=== PATIENT | female | born 1960 | race Two or more races ===

== ENCOUNTER 2024-09-28 10:07 | Emergency (ER) | payer MEDICARE, MEDICAID, SELFPAY ==
[2024-09-28 10:44] VITALS: BP 158/109; PULSE 136; RESP 18; TEMP 38; O2SAT 96; BMI 31.1
--- NOTE | 2024-09-28 10:45 | XR_ITS ---
Examination: PA lateral chest 2 views TECHNIQUE: Upright PA lateral chest 2 views Exam date and time: September 28, 2024 1119 hours Comparison April 14, 2024 INDICATIONS: Coughing today. FINDINGS: Parenchymal disease in the right middle lobe obscuring detail right cardiac contour No significant cardiac enlargement No pulmonary edema IMPRESSION: Pneumonia versus parenchymal scarring in the right middle lobe, clinical correlation advised
--- NOTE | 2024-09-28 10:46 | PD.EDRME ---
Rapid Medical Screening Exam RME Arrival date/time: 09/28/24 10:07 64-year-old female presents emergency department complaints of bilateral ear pain, sore throat and upper abdominal pain as well as fever and cough patient reports symptoms ongoing for last couple of days patient currently on antibiotics Chief Complaint: Ear Time Seen by Provider: 09/28/24 10:15 Vital signs: Vital Signs Temperature 100.4 F 09/28/24 10:44 Pulse Rate 136 H 09/28/24 10:44 Respiratory Rate 18 09/28/24 10:44 Blood Pressure 158/109 H 09/28/24 10:44 Pulse Oximetry (%) 96 09/28/24 10:44 Oxygen Delivery Method Room Air 09/28/24 10:44
[2024-09-28 11:15] LABS: Strep A Rapid Negative (Negative)
[2024-09-28 11:25] LABS: Lactate (Lactic Acid) 2.7 mMol/L (0.4-2.0)
[2024-09-28 11:26] LABS: Basophils # (Auto) 0.1 Thou/mm3 (0.0-0.2); Basophils % (Auto) 1 % (0-2.5); Eosinophils # (Auto) 0.1 Thou/mm3 (0.0-0.5); Eosinophils % (Auto) 1 % (0-10); Hematocrit 40.3 % (36.0-46.0); Hemoglobin 13.3 g/dL (12.0-16.0); Immature Granulocytes % (Auto) 0 % (0-0); Immature Granulocytes Auto 0.04 Thou/mm3 (0.00-0.00); Lymphocytes # (Auto) 2.6 Thou/mm3 (1.0-4.8); Lymphocytes % (Auto) 27 % (10-50); Mean Corpuscular Hemoglobin 28.9 pg (25.0-35.0); Mean Corpuscular Volume 88 fL (80-100); Monocytes # (Auto) 0.6 Thou/mm3 (0.0-0.8); Monocytes % (Auto) 6 % (0-12); Neutrophils # (Auto) 6.6 Thou/mm3 (1.8-7.7); Neutrophils % (Auto) 66 % (37-80); Nucleated Red Blood Cell % 0 /100 WBC (0); Platelet Count 232 Thou/mm3 (140-440)
[2024-09-28] MEDS: ACETAMINOPHEN 500 MG TABLET 1000 MG PO (11:36)
[2024-09-28 11:46] LABS: Collection Type, Urine Clean Catch
[2024-09-28 11:51] LABS: Alanine Aminotransferase 41 U/L (10-49); Albumin/Globulin Ratio 1.5 (1.2-2.2); Alkaline Phosphatase 120 U/L (46-116); Anion Gap 8 (7-16); Aspartate Amino Transferase 32 U/L (0-34); BUN/Creatinine Ratio 11 Ratio (12-20); Bilirubin,Total 0.6 mg/dL (0.3-1.2); Blood Urea Nitrogen 10 mg/dL (9-23); Calcium 10.3 mg/dL (8.3-10.6); Calcium (Corrected) 10.3 mg/dL (8.5-10.1); Carbon Dioxide 24.9 mMol/L (20.0-31.0); Chloride 104 mMol/L (98-107); Creatinine (Component) 0.9 mg/dL (0.6-1.3); Estimated Creatinine Clearance 64.7 mL/min (>60); Globulin 3.3 gm/dL (2.3-3.5); Glucose 202 mg/dL (74-106); Lipase 46 U/L (12-53); Osmolality,Calculated 278 (275-295); Potassium 3.9 mMol/L (3.4-5.1); Procalcitonin 0.11 ng/ml (0.0-0.49); Sodium 137 mMol/L (136-145); Total Protein 8.3 gm/dL (5.7-8.2); eGFR > 60 See Note
[2024-09-28 11:52] LABS: Bilirubin,Urine Negative (Negative); Blood,Urine 1+ (Negative); Clarity,Urine Clear (Clear/Hazy); Color,Urine Yellow (Lt Yel-Yel); Glucose, Urine Negative (Negative); Ketones,Urine Negative (Negative); Leukocyte Esterase,Urine Negative (Negative); Nitrite,Urine Negative (Negative); PH,Urine 6.5 (5.0-7.0); Protein,Urine 2+ (Neg - Trace); RBC,Urine 22 /hpf (0-3); Specific Gravity,Urine 1.021 (1.001-1.035); Squamous Epithelial Cell,Urine 1 /hpf (0-5); Urobilinogen,Urine Negative mg/dL (0.0-1.0); WBC,Urine 1 /hpf (0-5)
[2024-09-28 14:21] LABS: Reflex Lactate? Y
--- NOTE | 2024-09-28 15:14 | EDNOTE_ITS ---
Upper Respiratory Inf. RME/HPI General Chief Complaint: Upper Respiratory Infection Stated Complaint: BILAT EARS, THROAT, CHEST CONGESTION/PAIN; VOMIT Time Seen by Provider: 09/28/24 10:15 Arrival date/time: 09/28/24 10:07 RME / HPI RME / HPI Narrative: 09/28/24 10:07 64-year-old female presents emergency department complaints of bilateral ear pain, sore throat and upper abdominal pain as well as fever and cough patient reports symptoms ongoing for last couple of days patient currently on antibiotics DR. BROCK MAIN ED EVALUATION: 64 year old female with past medical history significant for hypertension, diabetes, hypercholesterolemia, asthma and arthritis presents to the Emergency Department with complaint of bilateral ear pain, sore throat, cough, and a low grade fever. Symptoms are mild to moderate. She notes sick contact with her son. Related Data Home Medications ?Medication ?Instructions ?Recorded ?Confirmed atorvastatin 20 mg tablet 20 mg PO QDAY 04/04/22 01/01/24 losartan 100 mg tablet 100 mg PO QDAY 04/04/22 01/01/24 metformin 500 mg tablet,extended 500 mg PO HS 04/04/22 01/01/24 release 24 hr metoprolol succinate 25 mg 25 mg PO QDAY 08/28/23 01/01/24 tablet,extended release 24 hr hydroxyzine HCl 25 mg tablet 25 mg PO HS PRN Anxiety 01/01/24 01/01/24 loratadine 10 mg tablet 10 mg PO QDAY 01/01/24 01/01/24 Previous Rx's ?Medication ?Instructions ?Recorded ibuprofen 600 mg tablet 600 mg PO TID PRN pain #30 tabs 07/31/22 cyclobenzaprine 10 mg tablet 10 mg PO TID PRN muscle spasm #30 04/14/24 tabs ibuprofen 800 mg tablet 800 mg PO TID PRN pain #30 tabs 04/14/24 oseltamivir 75 mg capsule (Tamiflu) 75 mg PO Q12H 5 days #10 caps 09/28/24 Allergies Allergy/AdvReac Type Severity Reaction Status Date / Time No Known Allergies Allergy Verified 01/01/24 09:32 Review of Systems Review of Systems Systems Reviewed: All systems reviewed, normal except as documented Past Medical History Past Medical History CARDIAC: Positive Cardiac Disorders, Hypercholesterolemia and Hypertension RESPIRATORY: Positive Asthma, Bronchitis and Pneumonia GASTROINTESTINAL: Positive Gastrointestinal Disorders and Obesity REPRODUCTIVE: Positive Endometriosis and Previous Pregnancies MUSCULOSKELETAL: Positive Musculoskeletal Disorders and Arthritis ENT: Positive Cataracts (beau) and Ear Infection (right tympano has a hole, pr pt) ENDOCRINE: Positive Endocrine Disorders and Diabetes Mellitus Type 2 (pre diabetes) PSYCHO/SOCIAL: Positive Anxiety OTHER HISTORY: Positive Shingles Family History FAMILY HISTORY: Positive Family Cardiac Disorders Surgical History SURGICAL: Positive Eye Surgery (Left pterygium,) Social History SMOKING STATUS: Never smoker SUBSTANCE USE: does not use ALCOHOL: Never ED Exam Narrative Physical exam: GENERAL APPEARANCE: AxOx4, generally well-appearing, no acute distress. HEENT: NC, AT. MMM. EOMI, clear conjunctiva, oropharynx clear. NECK: Supple without lymphadenopathy. No stiffness or restricted ROM. HEART: Normal rate and regular rhythm, normal S1/S1, no m/r/g LUNGS: CTAB, moving air well. No crackles or wheezes are heard. ABDOMEN: Soft, nontender, nondistended with good bowel sounds heard. BACK: No midline C/T/L spine pain or deformity, No CVAT, no obvious deformity. EXTREMITIES: Without cyanosis, clubbing or edema. MUSCULOSKELETAL: FROM of all major joints, no chest tenderness NEUROLOGICAL: Grossly nonfocal. Alert and oriented, moving all 4 extremities. CN not formally tested but appear grossly intact. Observed to ambulate with normal gait. Skin: Warm and dry without any rash. Course Quality Measures none Orders Category Date Time Status Bedside COVID-19 Antigen Test NOW Care 09/28/24 10:45 Completed Bedside Influenza A&B Antigen Test NOW Care 09/28/24 10:45 Completed XR chest 2V Stat Exams 09/28/24 10:45 Completed Blood Culture (Lab) Stat Lab 09/28/24 11:10 Received CBC Stat Lab 09/28/24 11:16 Completed Comprehensive Metabolic Panel Stat Lab 09/28/24 11:16 Completed Lactate (Lactic Acid) Stat Lab 09/28/24 11:16 Completed Lipase Stat Lab 09/28/24 11:16 Completed Procalcitonin Stat Lab 09/28/24 11:16 Completed Strep A Rapid Stat Lab 09/28/24 10:55 Completed Urinalysis Stat Lab 09/28/24 11:30 Completed Urine Culture Stat Lab 09/28/24 11:30 Received Acetaminophen Tab [Tylenol ES Tab] Med 09/28/24 10:45 Discontinued 1,000 mg PO X1 ONE Vital Signs Vital signs: Vital Signs Temperature 100.4 F 09/28/24 10:44 Pulse Rate 136 H 09/28/24 10:44 Respiratory Rate 18 09/28/24 10:44 Blood Pressure 158/109 H 09/28/24 10:44 Pulse Oximetry (%) 96 09/28/24 10:44 Oxygen Delivery Method Room Air 09/28/24 10:44 Upper Respiratory Infection MDM Narrative MDM Narrative:: Argenis Villalta am scribing for and in the presence of Dr. Brock. Patient data External records reviewed:: [facility] previous records (Reviewed last ED visit dated 04/14/24, discharged with the following: Chest pain, muscular.) Clinical information provided by:: patient Social determinants that could affect healthcare access:: none Patient has the following chronic illnesses:: Hypertension, diabetes, hypercholesterolemia, asthma and arthritis How is presenting disease/condition affected by chronic disease/condition?: exacerbated by Evaluation data The following diagnostics were reviewed and interpreted by me:: lab results and radiology exam(s) Lab and/or radiology exams considered but not ordered:: none Interpretation Summary: Procedure(s): XR chest 2V Accession Number(s): [id number] cc: Gisella (TEOFILO),Naren RED; Sylwia Curry MD; Cullen Burleson MD~ Examination: PA lateral chest 2 views TECHNIQUE: Upright PA lateral chest 2 views Exam date and time: September 28, 2024 1119 hours Comparison April 14, 2024 INDICATIONS: Coughing today. FINDINGS: Parenchymal disease in the right middle lobe obscuring detail right cardiac contour No significant cardiac enlargement No pulmonary edema IMPRESSION: Pneumonia versus parenchymal scarring in the right middle lobe, clinical correlation advised Dictated By: Cullen Burleson MD Medications / Prescriptions Medications or Prescriptions considered but not ordered:: none Medication administrations:: Medication Administration History Discontinued Medications Acetaminophen (Acetaminophen 500 Mg Tablet) 1,000 mg PO X1 ONE Stop: 09/28/24 10:46 Last Admin: 09/28/24 11:36 Dose: 1,000 mg Documented By: RHETT see above Consultations Consultation(s) initiated? (list below): No Diagnosis Upper Respiratory Differential Diagnosis: upper respiratory infection, viral infection, bronchitis and other (Influenza, COVID) Most likely diagnosis given after review of the tests above:: Influenza A Admission Indicated Admission indicated?: not indicated Admission Request Was there a request for admission?: No Disposition Plan Disposition Plan: Discharge Discharge Attestation Discharge Attestation: The patient and all family members were given an opportunity to ask questions and understood the discharge instructions. Discharge instructions specifically effects, indications for sooner follow up or return to the emergency department, and the expected course of current diagnosis. Patient condition: Stable Discharge Plan Plan Patient Disposition: HOME (Self Care) Prescriptions/Referrals Prescriptions/Med Rec: New oseltamivir [Tamiflu] 75 mg capsule 75 mg PO Q12H 5 Days Qty: 10 0RF No Action atorvastatin 20 mg tablet 20 mg PO QDAY Patient Comments: TOME EVY TABLETA TODOS LOS D FOR 90 DAYS losartan 100 mg tablet 100 mg PO QDAY Patient Comments: TOME EVY TABLETA TODOS LOS D FOR 90 DAYS metformin 500 mg tablet extended release 24 hr 500 mg PO HS Patient Comments: TOME EVY TABLETA POR V A ORAL TODOS LOS D CON LA NATHALY Rx Instructions: with dinner ibuprofen 600 mg tablet 600 mg PO TID PRN (Reason: pain) Qty: 30 0RF metoprolol succinate 25 mg Tablet Extended Release 24 Hr 25 mg PO QDAY hydroxyzine HCl 25 mg Tablet 25 mg PO HS PRN (Reason: Anxiety) loratadine 10 mg Tablet 10 mg PO QDAY cyclobenzaprine 10 mg tablet 10 mg PO TID PRN (Reason: muscle spasm) Qty: 30 0RF ibuprofen 800 mg tablet 800 mg PO TID PRN (Reason: pain) Qty: 30 0RF Referrals: Sylwia Curry MD [Primary Care Provider] - In 1 week Problem List Clinical Impression: Influenza A Patient/Caregiver Discharge Instructions Education Materials: ED Influenza (Adult) Additional Instructions: Emily un seguimiento con carpenter m?dico de atenci?n primaria en 3 a 5 d?as para volver a controlarlo. Puede regresar al departamento de emergencias antes si los s?ntomas empeoran o si nota alg?n problema nuevo y preocupante. Print Language: Japanese Stand Alone Forms: Leticia Award Info., Patient Portal Info Letter
--- NOTE | 2024-09-28 17:58 | PC.NURSE ---
pt placed in this RNs room while RN on lunch, provider went in to evaluate and discharged prior to nursing staff assessment. Pt left w/out d/c papers.
== END 2024-09-28 17:59 | disposition home or self-care (01) ==
PROVIDERS: Nurse Practitioner Primary Care; Emergency Provider Emergency Medicine; PCP Obstetrics & Gynecology
DX: J10.1 Influenza due to other identified influenza virus with other respiratory manifestations (principal)
CPT/HCPCS: 36415; 71046; 80053; 81001; 83605; 83690; 84145; 85025; 87040; 87086; 87400; 87651; 87811; 99283; A9270

== ENCOUNTER 2024-10-01 16:35 | Emergency (ER) | payer MEDICARE, MEDICAID, SELFPAY ==
[2024-10-01 16:46] VITALS: BP 152/97; PULSE 127; RESP 18; TEMP 36.8; O2SAT 97; BMI 29.9
--- NOTE | 2024-10-01 16:54 | XR_ITS ---
Examination: PA lateral chest 2 views Technique: Upright PA lateral chest 2 views Exam date and time: October 01, 2024 1705 hrs. Indications: Throat pain left ear pain beginning 3 days ago Findings: Parenchymal disease in the lingular segment, scar versus pneumonia, clinical correlation advised No pulmonary edema Normal heart size Impression: Parenchymal disease in the lingular segment left upper lobe, scarring versus pneumonia, clinical correlation advised
--- NOTE | 2024-10-01 16:55 | PD.EDRME ---
Rapid Medical Screening Exam RME Arrival date/time: 10/01/24 16:35 64-year-old female with past medical history of hyperlipidemia and hypertension presents emergency department complaining of left ear pain, sore throat, and cough that been ongoing for several days. Chief Complaint: Ear Time Seen by Provider: 10/01/24 16:52 Vital signs: Vital Signs Temperature 98.2 F 10/01/24 16:46 Pulse Rate 127 H 10/01/24 16:46 Respiratory Rate 18 10/01/24 16:46 Blood Pressure 152/97 H 10/01/24 16:46 Pulse Oximetry (%) 97 10/01/24 16:46 Oxygen Delivery Method Room Air 10/01/24 16:46 Vital signs reviewed by provider: Yes
[2024-10-01 17:21] LABS: Basophils # (Auto) 0.1 Thou/mm3 (0.0-0.2); Basophils % (Auto) 1 % (0-2.5); Eosinophils # (Auto) 0.1 Thou/mm3 (0.0-0.5); Eosinophils % (Auto) 1 % (0-10); Hemoglobin 13.2 g/dL (12.0-16.0); Immature Granulocytes % (Auto) 0 % (0-0); Immature Granulocytes Auto 0.04 Thou/mm3 (0.00-0.00); Lymphocytes # (Auto) 4.2 Thou/mm3 (1.0-4.8); Lymphocytes % (Auto) 40 % (10-50); Mean Corpuscular Volume 88 fL (80-100); Monocytes # (Auto) 0.7 Thou/mm3 (0.0-0.8); Monocytes % (Auto) 6 % (0-12); Neutrophils # (Auto) 5.5 Thou/mm3 (1.8-7.7); Neutrophils % (Auto) 52 % (37-80); Nucleated Red Blood Cell % 0 /100 WBC (0); Platelet Count 229 Thou/mm3 (140-440); Red Blood Count 4.55 Miln/mm3 (4.00-5.20); White Blood Count 10.6 Thou/mm3 (3.6-11.0)
[2024-10-01 17:27] LABS: Alanine Aminotransferase 44 U/L (10-49); Albumin, Serum 5.3 gm/dL (3.4-4.8); Albumin/Globulin Ratio 1.7 (1.2-2.2); Alkaline Phosphatase 111 U/L (46-116); Anion Gap 8 (7-16); Aspartate Amino Transferase 42 U/L (0-34); BUN/Creatinine Ratio 11 Ratio (12-20); Bilirubin,Total 0.6 mg/dL (0.3-1.2); Blood Urea Nitrogen 11 mg/dL (9-23); Calcium 10.1 mg/dL (8.3-10.6); Calcium (Corrected) 10.1 mg/dL (8.5-10.1); Carbon Dioxide 24.5 mMol/L (20.0-31.0); Chloride 104 mMol/L (98-107); Estimated Creatinine Clearance 59.3 mL/min (>60); Globulin 3.1 gm/dL (2.3-3.5); Glucose 170 mg/dL (74-106); Osmolality,Calculated 275 (275-295); Potassium 4.3 mMol/L (3.4-5.1); Sodium 136 mMol/L (136-145); Total Protein 8.4 gm/dL (5.7-8.2); Troponin I < 0.002 ng/mL (0.0-0.045); eGFR > 60 See Note
[2024-10-01 17:49] LABS: Collection Type, Urine Clean Catch
[2024-10-01 18:00] LABS: Bilirubin,Urine Negative (Negative); Blood,Urine 1+ (Negative); Clarity,Urine Clear (Clear/Hazy); Color,Urine Lt-Yellow (Lt Yel-Yel); Culture Indicated,Urine Not Indicated; Glucose, Urine Negative (Negative); Ketones,Urine Negative (Negative); Leukocyte Esterase,Urine Negative (Negative); Nitrite,Urine Negative (Negative); Protein,Urine 1+ (Neg - Trace); RBC,Urine 13 /hpf (0-3); Specific Gravity,Urine 1.018 (1.001-1.035); Squamous Epithelial Cell,Urine 2 /hpf (0-5); WBC,Urine 3 /hpf (0-5)
[2024-10-01 18:11] LABS: B-Type Natriuretic Peptide < 20 pg/mL (0-100)
[2024-10-01] MEDS: ACETAMINOPHEN 500 MG TABLET 1000 MG PO (18:16)
[2024-10-01 19:06] LABS: Strep A Rapid Negative (Negative)
--- NOTE | 2024-10-01 19:49 | EDNOTE_ITS ---
<Statement entered by Carline Pitts MD - 10/01/24 22:01> As co-signing physician, I was present and available for consult prn. I concur with the plan and care as documented by the midlevel provider. ED Ear RME/HPI General Chief complaint: Ear Stated complaint: LEFT EAR AND THROAT PAIN; SEEN ER WED Time Seen by Provider: 10/01/24 16:52 Arrival date/time: 10/01/24 16:35 RME / HPI RME / HPI Narrative: 64-year-old female with past medical history of hyperlipidemia and hypertension presents emergency department complaining of left ear pain, sore throat, and cough that been ongoing for several days. Severity of symptoms moderate. Patient was diagnosed with influenza and was sent home on Tamiflu few days ago denies any other complaints no medications taken prior to arrival. Related Data Home Medications ?Medication ?Instructions ?Recorded ?Confirmed atorvastatin 20 mg tablet 20 mg PO QDAY 04/04/22 01/01/24 losartan 100 mg tablet 100 mg PO QDAY 04/04/22 01/01/24 metformin 500 mg tablet,extended 500 mg PO HS 04/04/22 01/01/24 release 24 hr metoprolol succinate 25 mg 25 mg PO QDAY 08/28/23 01/01/24 tablet,extended release 24 hr hydroxyzine HCl 25 mg tablet 25 mg PO HS PRN Anxiety 01/01/24 01/01/24 loratadine 10 mg tablet 10 mg PO QDAY 01/01/24 01/01/24 Previous Rx's ?Medication ?Instructions ?Recorded ibuprofen 600 mg tablet 600 mg PO TID PRN pain #30 tabs 07/31/22 cyclobenzaprine 10 mg tablet 10 mg PO TID PRN muscle spasm #30 04/14/24 tabs ibuprofen 800 mg tablet 800 mg PO TID PRN pain #30 tabs 04/14/24 oseltamivir 75 mg capsule (Tamiflu) 75 mg PO Q12H 5 days #10 caps 09/28/24 amoxicillin 875 mg-potassium 1 tab PO BID #14 tabs 10/01/24 clavulanate 125 mg tablet Allergies Allergy/AdvReac Type Severity Reaction Status Date / Time No Known Allergies Allergy Verified 10/01/24 16:36 Review of Systems Review of Systems Narrative Review of Systems: Review of system reviewed and within normal limits except mentioned in HPI ED Exam Narrative Physical exam: VITAL SIGNS: Reviewed. GENERAL APPEARANCE: Alert and interactive, follows commands, no acute distress, HEAD AND FACE: Non-traumatic. ENT: PERRL, pink conjunctivitis, eyelid no trauma, Mucous membrane moist. Left tympanic membrane, with erythema bulging and tender NECK: Supple, nontender, no nuchal rigidity. CHEST: No tenderness, no crepitus, no paradoxical movement, no retractions. LUNGS: Clear, well ventilated, symmetric, no rales, no wheezing, no ronchi, no stridor, good breath sounds bilaterally. HEART: Regular rate, regular rhythm, no murmur, no gallops. ABDOMEN: Soft, positive bowel sounds, nondistended, no guarding, nontender, no rebound, no masses, RECTAL: Deferred. GENITAL: Deferred. NEUROLOGICAL: Gross motor function intact sensory function intact, Appropriate for age. MUSCULOSKELETAL: low back nontender, full range of motion. EXTREMITIES: Nontender, full range of motion. SKIN: Color pink, dry, no rash, no lacerations, no abrasions, no contusions. LYMPHATICS: Deferred. Course Quality Measures none Orders Category Date Time Status Bedside COVID-19 Antigen Test NOW Care 10/01/24 16:55 Completed Bedside Influenza A&B Antigen Test NOW Care 10/01/24 16:55 Completed EKG (ED ONLY) *Do not use* NOW Care 10/01/24 16:54 Completed EKG (ED Only) Stat Exams 10/01/24 16:54 Ordered XR chest 2V Stat Exams 10/01/24 16:54 Completed BNP [B-Type Natriuretic Peptide] Stat Lab 10/01/24 17:05 Completed CBC Stat Lab 10/01/24 17:05 Completed Comprehensive Metabolic Panel Stat Lab 10/01/24 17:05 Completed Strep A Rapid Stat Lab 10/01/24 17:08 Completed Troponin I Stat Lab 10/01/24 17:05 Completed Urinalysis, C/S if Indicated Stat Lab 10/01/24 17:42 Completed Acetaminophen Tab [Tylenol ES Tab] Med 10/01/24 17:32 Discontinued 1,000 mg PO X1 ONE Amoxicillin/Pot Clav 875 [Augmentin 875] Med 10/01/24 19:47 Discontinued 1 tab PO X1 ONE Vital Signs Vital signs: Vital Signs Temperature 98.2 F 10/01/24 16:46 Pulse Rate 127 H 10/01/24 16:46 Respiratory Rate 18 10/01/24 16:46 Blood Pressure 152/97 H 10/01/24 16:46 Pulse Oximetry (%) 97 10/01/24 16:46 Oxygen Delivery Method Room Air 10/01/24 16:46 Ear Patient data External records reviewed:: None Clinical information provided by:: patient and family Social determinants that could affect healthcare access:: none Patient has the following chronic illnesses:: None How is presenting disease/condition affected by chronic disease/condition?: no chronic disease Evaluation data The following diagnostics were reviewed and interpreted by me:: lab results, radiology exam(s) and EKG tracing(s) Lab and/or radiology exams considered but not ordered:: None Interpretation Summary: Laboratory workup came back normal. Chest ray showed parenchymal disease in the lingular segment left upper lobe, scarring versus pneumonia, clinical correlation advised Medications / Prescriptions Medications or Prescriptions considered but not ordered:: None Medication administrations:: Medication Administration History Discontinued Medications Acetaminophen (Acetaminophen 500 Mg Tablet) 1,000 mg PO X1 ONE Stop: 10/01/24 17:33 Last Admin: 10/01/24 18:16 Dose: 1,000 mg Documented By: Amoxicillin/Clavulanate Potassium (Amoxicillin/Pot Clav 875 Tablet) 1 tab PO X1 ONE Stop: 10/01/24 19:48 Augmentin Tylenol Consultations Consultation(s) initiated? (list below): No Diagnosis Ear Differential Diagnosis: otitis externa, otitis media, foreign body in ear and other (Cough) Most likely diagnosis given after review of the tests above:: Cough, otitis media Admission Indicated Admission indicated?: not indicated Explain why admission is indicated or not indicated:: Stable Admission Request Was there a request for admission?: No Disposition Plan Disposition Plan: Discharge Discharge Attestation Discharge Attestation: The patient and all family members were given an opportunity to ask questions and understood the discharge instructions. Discharge instructions specifically effects, indications for sooner follow up or return to the emergency department, and the expected course of current diagnosis. Patient condition: Stable Medical Decision Making MDM Narrative MDM Narrative: 64-year-old female with past medical history of hyperlipidemia and hypertension presents emergency department complaining of left ear pain, sore throat, and cough that been ongoing for several days. Severity of symptoms moderate. Patient was diagnosed with influenza and was sent home on Tamiflu few days ago denies any other complaints no medications taken prior to arrival. Laboratory work all came back unremarkable no leukocytosis noted. CMP unremarkable urinalysis no UTI. Chest x-ray showed Parenchymal disease in the lingular segment left upper lobe, scarring versus pneumonia, clinical correlation advised Patient was given empiric antibiotic treatment for otitis media. Lab Data 10/01/24 17:05 10/01/24 17:05 Labs: Lab Results 10/01/24 10/01/24 10/01/24 Range/Units 17:05 17:08 17:42 WBC 10.6 (3.6-11.0) Thou/mm3 RBC 4.55 (4.00-5.20) Miln/mm3 Hgb 13.2 (12.0-16.0) g/dL Hct 40.0 (36.0-46.0) % MCV 88 (80-100) fL MCH 29.0 (25.0-35.0) pg MCHC 33.0 (31.0-37.0) g/dl RDW Std Deviation 44.0 (36.4-46.3) fL Plt Count 229 (140-440) Thou/mm3 Neut % (Auto) 52 (37-80) % Lymph % (Auto) 40 (10-50) % [place] % (Auto) 6 (0-12) % Eos % (Auto) 1 (0-10) % Baso % (Auto) 1 (0-2.5) % Neut # (Auto) 5.5 (1.8-7.7) Thou/mm3 Lymph # (Auto) 4.2 (1.0-4.8) Thou/mm3 [place] # (Auto) 0.7 (0.0-0.8) Thou/mm3 Eos # (Auto) 0.1 (0.0-0.5) Thou/mm3 Baso # (Auto) 0.1 (0.0-0.2) Thou/mm3 Immature Gran # (Auto) 0.04 H (0.00-0.00) Thou/mm3 Absolute Nucleated RBC 0.00 (0.00-0.00) Thou/mm3 Immature Gran % 0 (0-0) % Nucleated RBC % 0 (0) /100 WBC Sodium 136 (136-145) mMol/L Potassium 4.3 (3.4-5.1) mMol/L Chloride 104 (98-107) mMol/L Carbon Dioxide 24.5 (20.0-31.0) mMol/L Anion Gap 8 (7-16) BUN 11 (9-23) mg/dL Creatinine 1.0 (0.6-1.3) mg/dL Estim Creat Clear Calc 59.3 L (>60) mL/min eGFR > 60 (60 - ) See Note BUN/Creatinine Ratio 11 L (12-20) Ratio Glucose 170 H (74-106) mg/dL Calculated Osmolality 275 (275-295) Calcium 10.1 (8.3-10.6) mg/dL Corrected Calcium 10.1 (8.5-10.1) mg/dL Total Bilirubin 0.6 (0.3-1.2) mg/dL AST 42 H (0-34) U/L ALT 44 (10-49) U/L Alkaline Phosphatase 111 (46-116) U/L Troponin I < 0.002 (0.0-0.045) ng/mL B-Natriuretic Peptide < 20 (0-100) pg/mL Total Protein 8.4 H (5.7-8.2) gm/dL Albumin 5.3 H (3.4-4.8) gm/dL Globulin 3.1 (2.3-3.5) gm/dL Albumin/Globulin Ratio 1.7 (1.2-2.2) Ur Collection Type Clean Catch Urine Color Lt-Yellow (Lt Yel-Yel) Urine Clarity Clear (Clear/Hazy) Urine pH 7.0 (5.0-7.0) Ur Specific [place] 1.018 (1.001-1.035) Urine Protein 1+ A (Neg - Trace) Urine Glucose (UA) Negative (Negative) Urine Ketones Negative (Negative) Urine Blood 1+ A (Negative) Urine Nitrite Negative (Negative) Urine Bilirubin Negative (Negative) Urine Urobilinogen (Auto) 2.0 (0.0-1.0) mg/dL Ur Leukocyte Esterase Negative (Negative) Urine RBC 13 H (0-3) /hpf Urine WBC 3 (0-5) /hpf Ur Squamous Epith Cells 2 (0-5) /hpf Urine Bacteria None (None) Ur Culture Indicated? Not Indicated Group A Strep Rapid Negative (Negative) Discharge Plan Plan Patient Disposition: HOME (Self Care) Disposition Comment: stable Prescriptions/Referrals Prescriptions/Med Rec: New amoxicillin-pot clavulanate 875-125 mg tablet 1 tab PO BID Qty: 14 0RF No Action atorvastatin 20 mg tablet 20 mg PO QDAY Patient Comments: TOME EVY TABLETA TODOS LOS D FOR 90 DAYS losartan 100 mg tablet 100 mg PO QDAY Patient Comments: TOME EVY TABLETA TODOS LOS D FOR 90 DAYS metformin 500 mg tablet extended release 24 hr 500 mg PO HS Patient Comments: TOME EVY TABLETA POR V A ORAL TODOS LOS D CON LA NATHALY Rx Instructions: with dinner ibuprofen 600 mg tablet 600 mg PO TID PRN (Reason: pain) Qty: 30 0RF metoprolol succinate 25 mg Tablet Extended Release 24 Hr 25 mg PO QDAY hydroxyzine HCl 25 mg Tablet 25 mg PO HS PRN (Reason: Anxiety) loratadine 10 mg Tablet 10 mg PO QDAY oseltamivir [Tamiflu] 75 mg capsule 75 mg PO Q12H 5 Days Qty: 10 0RF cyclobenzaprine 10 mg tablet 10 mg PO TID PRN (Reason: muscle spasm) Qty: 30 0RF ibuprofen 800 mg tablet 800 mg PO TID PRN (Reason: pain) Qty: 30 0RF Referrals: Sylwia Curry MD [Primary Care Provider] - In 1 week Problem List Clinical Impression: Otitis media Patient/Caregiver Discharge Instructions Discharge Activity: activity as tolerated Education Materials: ED Otitis Media Antibiotic ... Additional Instructions: Thank you for the opportunity for serving you today. You are stable for discharged . You are advised to: Follow-up with your PCP in 1 to 2 days Return to ED for worsening of symptoms Increase oral fluids Take medication as prescribed Take [id number] Tylenol or Motrin as needed for pain Print Language: Haitian Stand Alone Forms: Leticia Award Info., Patient Portal Info Letter PA/DILCIA Supervising Physician PA/DILCIA Supervising Physician: MD Hong
[2024-10-01] MEDS: AMOXICILLIN/POT CLAV 875 TABLET 1 TAB PO (19:56)
== END 2024-10-01 20:01 | disposition home or self-care (01) ==
PROVIDERS: Emergency Provider Emergency Medicine; PCP Obstetrics & Gynecology
DX: H66.92 Otitis media, unspecified, left ear (principal); J98.4 Other disorders of lung; I10 Essential (primary) hypertension; E78.5 Hyperlipidemia, unspecified
CPT/HCPCS: 36415; 71046; 80053; 81001; 83880; 84484; 85025; 87400; 87651; 87811; 93005; 99283; A9270

== ENCOUNTER 2025-01-16 11:40 | Emergency (ER) | payer MEDICARE, MEDICAID, SELFPAY ==
--- NOTE | 2025-01-16 12:14 | XR_ITS ---
Examination: PA lateral chest 2 views TECHNIQUE: Upright PA lateral chest 2 views Exam date and time: January 16, 2025 at 1154 hours Comparison October 01, 2024 INDICATIONS: Coughing beginning one week ago. FINDINGS: Minor scarring in the lingular segment. No pneumonia or pulmonary edema. The osseous structures are intact. IMPRESSION: No pneumonia or pulmonary edema
--- NOTE | 2025-01-16 12:14 | PD.EDURI ---
Upper Respiratory Inf. RME/HPI General Chief Complaint: Flu Like Symptoms Stated Complaint: COUGH X 2 WKS, PAIN IN LUNGS, KNEES, FEET Time Seen by Provider: 01/16/25 11:58 Source: patient Arrival date/time: 01/16/25 11:40 65-year-old female with a history of hyperlipidemia, type 2 diabetes, hypertension presents to the emergency room with a chief complaint of cough, congestion, body aches x 2 weeks. Mode of arrival: ambulatory Limitations: no limitations Related Data Home Medications ?Medication ?Instructions ?Recorded ?Confirmed atorvastatin 20 mg tablet 20 mg PO QDAY 04/04/22 01/01/24 losartan 100 mg tablet 100 mg PO QDAY 04/04/22 01/01/24 metformin 500 mg tablet,extended 500 mg PO HS 04/04/22 01/01/24 release 24 hr metoprolol succinate 25 mg 25 mg PO QDAY 08/28/23 01/01/24 tablet,extended release 24 hr hydroxyzine HCl 25 mg tablet 25 mg PO HS PRN Anxiety 01/01/24 01/01/24 loratadine 10 mg tablet 10 mg PO QDAY 01/01/24 01/01/24 Previous Rx's ?Medication ?Instructions ?Recorded ibuprofen 600 mg tablet 600 mg PO TID PRN pain #30 tabs 07/31/22 cyclobenzaprine 10 mg tablet 10 mg PO TID PRN muscle spasm #30 04/14/24 tabs ibuprofen 800 mg tablet 800 mg PO TID PRN pain #30 tabs 04/14/24 amoxicillin 875 mg-potassium 1 tab PO BID #14 tabs 10/01/24 clavulanate 125 mg tablet Allergies Allergy/AdvReac Type Severity Reaction Status Date / Time No Known Allergies Allergy Verified 01/16/25 11:44 ED Exam General Limitations: Present no limitations Course Quality Measures none Orders Category Date Time Status Bedside COVID-19 Antigen Test NOW Care 01/16/25 12:14 Completed Bedside Influenza A&B Antigen Test NOW Care 01/16/25 12:14 Completed XR chest 2V Stat Exams 01/16/25 12:14 Completed Albuterol/Ipratr Rt Natalya [Duoneb Rt Natalya] Med 01/16/25 14:52 Discontinued 3 ml INH X1 ONE Dexamethasone Inj [Decadron Inj] Med 01/16/25 14:52 Discontinued 4 mg PO X1 ONE Vital Signs Vital signs: Vital Signs Temperature 98.1 F 01/16/25 14:50 Pulse Rate 96 01/16/25 14:50 Respiratory Rate 20 01/16/25 14:50 Blood Pressure 149/90 H 01/16/25 14:50 Pulse Oximetry (%) 95 01/16/25 14:50 Oxygen Delivery Method Room Air 01/16/25 14:50 Upper Respiratory Infection MDM Narrative MDM Narrative:: 65-year-old female with a history of hyperlipidemia, type 2 diabetes, hypertension presents to the emergency room with a chief complaint of cough, congestion, body aches x 2 weeks. Patient is hemodynamically stable and in no apparent distress. The patient is not tachycardic not tachypneic not febrile and her O2 saturation is 98% on room air Physical examination shows clear bilateral lung sounds there is no wheezing there is no abnormal breath sounds. Chest x-ray was negative for any pneumonic infiltrates. COVID-19 and influenza were both negative Patient was discharged and educated to follow-up with primary care provider in the next 24 to 48 hours and return to the emergency room for any evidence of worsening signs or symptoms Patient data External records reviewed:: [facility] previous records Clinical information provided by:: patient Social determinants that could affect healthcare access:: none Patient has the following chronic illnesses:: No chronic illness How is presenting disease/condition affected by chronic disease/condition?: no chronic disease Evaluation data The following diagnostics were reviewed and interpreted by me:: lab results and radiology exam(s) Lab and/or radiology exams considered but not ordered:: Labs and radiology exams considered and ordered Interpretation Summary: Chest [id number]: Minor scarring in the lingular segment. No pneumonia or pulmonary edema. The osseous structures are intact. IMPRESSION: No pneumonia or pulmonary edema Medications / Prescriptions Medications or Prescriptions considered but not ordered:: Medication given Medication administrations:: Medication Administration History Discontinued Medications Albuterol/Ipratropium (Albuterol/Ipratropium (Duoneb) Rt Natalya 3 Ml Nebu) 3 ml INH X1 ONE Stop: 01/16/25 14:53 Last Admin: 01/16/25 15:17 Dose: 3 ml Documented By: CHLOÉ Dexamethasone Sodium Phosphate (Dexamethasone Sod Phos Inj 4 Mg/Ml Vial) 4 mg PO X1 ONE; Protocol Stop: 01/16/25 14:53 Last Admin: 01/16/25 15:01 Dose: 4 mg Documented By: KF Medication given Consultations Consultation(s) initiated? (list below): No Diagnosis Upper Respiratory Differential Diagnosis: upper respiratory infection, viral infection, bronchitis, influenza, pharyngitis and other Most likely diagnosis given after review of the tests above:: Bronchitis Admission Indicated Admission indicated?: not indicated Admission Request Was there a request for admission?: No Disposition Plan Disposition Plan: Discharge Discharge Attestation Discharge Attestation: The patient and all family members were given an opportunity to ask questions and understood the discharge instructions. Discharge instructions specifically effects, indications for sooner follow up or return to the emergency department, and the expected course of current diagnosis. 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: with dinner ibuprofen 600 mg tablet 600 mg PO TID PRN (Reason: pain) Qty: 30 0RF metoprolol succinate 25 mg Tablet Extended Release 24 Hr 25 mg PO QDAY hydroxyzine HCl 25 mg Tablet 25 mg PO HS PRN (Reason: Anxiety) loratadine 10 mg Tablet 10 mg PO QDAY amoxicillin-pot clavulanate 875-125 mg tablet 1 tab PO BID Qty: 14 0RF cyclobenzaprine 10 mg tablet 10 mg PO TID PRN (Reason: muscle spasm) Qty: 30 0RF ibuprofen 800 mg tablet 800 mg PO TID PRN (Reason: pain) Qty: 30 0RF Referrals: Sylwia Curry FNP-C [Primary Care Provider] - In 1 week Problem List Clinical Impression: Upper respiratory infection, Upper respiratory infection, viral Patient/Caregiver Discharge Instructions Education Materials: ED URI, Viral, No Abx (Adult) Additional Instructions: Please follow-up with your primary care provider in the next 24 to 48 hours. You tested negative for influenza and COVID-19. Your chest x-ray was negative for any pneumonia For any evidence of worsening signs or symptoms return to the emergency room immediately Print Language: Ghanaian Stand Alone Forms: Leticia Award Info., Patient Portal Info Letter PA/ACCESS LEAD Supervising Physician PA/ACCESS LEAD Supervising Physician: Dr. Albright
[2025-01-16 14:50] VITALS: BP 149/90; PULSE 96; RESP 20; TEMP 36.7; O2SAT 95
[2025-01-16] MEDS: DEXAMETHASONE SOD PHOS INJ 4 MG/ML VIAL PO (15:01)
[2025-01-16] MEDS: ALBUTEROL/IPRATROPIUM (Duoneb) RT SOL 3 ML NEBU INH (15:17)
[2025-01-16 15:24] VITALS: PULSE 98; RESP 18; O2SAT 98
== END 2025-01-16 15:56 | disposition home or self-care (01) ==
PROVIDERS: Emergency Provider Emergency Medicine; PCP Nurse Practitioner Family
DX: J06.9 Acute upper respiratory infection, unspecified (principal)
CPT/HCPCS: 71046; 87400; 87811; 94640; 99283; A9270; J1100

== ENCOUNTER 2025-05-04 13:50 | Emergency (ER) | payer MEDICARE, MEDICAID, SELFPAY ==
[2025-05-04 14:12] VITALS: BP 154/92; PULSE 133; RESP 17; TEMP 37; O2SAT 96
--- NOTE | 2025-05-04 14:13 | XR_ITS ---
Examination: PA lateral chest 2 views TECHNIQUE: Upright PA lateral chest 2 views Date and time: May 04, 2025, 1424 hours INDICATIONS: Bilateral chest pain beginning 2 weeks ago. FINDINGS: Normal heart size. The lungs are clear. Stable fat pad or scarring in the lingular segment on the lateral view compared with January 16, 2025 IMPRESSION: No pneumonia or pulmonary edema
--- NOTE | 2025-05-04 14:14 | PD.EDRME ---
Rapid Medical Screening Exam E Arrival date/time: 05/04/25 13:50 65-year-old female with a history of hyperlipidemia, hypertension, type 2 diabetes presents to the emergency room with a chief complaint of chest pain, palpitations x 3 days. Patient also is complaining of bilateral ear pain I have greeted and performed a focused initial assessment of this patient. A comprehensive ED assessment and evaluation of the patient, analysis of all test results, and completion of the medical decision making process will be conducted by additional ED providers. Chief Complaint: General Adult/Misc Complain Time Seen by Provider: 05/04/25 14:01 Vital signs: Vital Signs Temperature 98.6 F 05/04/25 14:12 Pulse Rate 133 H 05/04/25 14:12 Respiratory Rate 17 05/04/25 14:12 Blood Pressure 154/92 H 05/04/25 14:12 Pulse Oximetry (%) 96 05/04/25 14:12 Oxygen Delivery Method Room Air 05/04/25 14:12 Vital signs reviewed by provider: Yes
[2025-05-04 14:39] LABS: Basophils # (Auto) 0.1 Thou/mm3 (0.0-0.2); Basophils % (Auto) 1 % (0-2.5); Eosinophils # (Auto) 0.1 Thou/mm3 (0.0-0.5); Eosinophils % (Auto) 1 % (0-10); Hematocrit 41.5 % (36.0-46.0); Hemoglobin 13.7 g/dL (12.0-16.0); Immature Granulocytes Auto 0.04 Thou/mm3 (0.00-0.00); Lymphocytes # (Auto) 4.6 Thou/mm3 (1.0-4.8); Lymphocytes % (Auto) 44 % (10-50); Mean Corpuscular HGB Conc 33.0 g/dl (31.0-37.0); Mean Corpuscular Hemoglobin 29.4 pg (25.0-35.0); Mean Corpuscular Volume 89 fL (80-100); Monocytes # (Auto) 0.6 Thou/mm3 (0.0-0.8); Monocytes % (Auto) 5 % (0-12); Neutrophils # (Auto) 5.1 Thou/mm3 (1.8-7.7); Neutrophils % (Auto) 49 % (37-80); Nucleated Red Blood Cell # 0.00 Thou/mm3 (0.00-0.00); Nucleated Red Blood Cell % 0 /100 WBC (0); Platelet Count 200 Thou/mm3 (140-440); RDW Standard Deviation 43.5 fL (36.4-46.3); Red Blood Count 4.66 Miln/mm3 (4.00-5.20); White Blood Count 10.4 Thou/mm3 (3.6-11.0)
[2025-05-04 14:58] LABS: INR 1.0 (0.9-1.3); Partial Thromboplastin Time 28.6 Seconds (22.0-36.0); Prothrombin Time 11.4 Seconds (9.0-12.2)
[2025-05-04 15:06] LABS: B-Type Natriuretic Peptide < 20 pg/mL (0-100)
[2025-05-04 15:09] LABS: Alanine Aminotransferase 26 U/L (10-49); Albumin, Serum 5.0 gm/dL (3.4-4.8); Albumin/Globulin Ratio 1.6 (1.2-2.2); Alkaline Phosphatase 115 U/L (46-116); Anion Gap 7 (7-16); Aspartate Amino Transferase 25 U/L (0-34); BUN/Creatinine Ratio 13 Ratio (12-20); Bilirubin,Total 0.7 mg/dL (0.3-1.2); Blood Urea Nitrogen 12 mg/dL (9-23); Calcium 9.9 mg/dL (8.3-10.6); Calcium (Corrected) 9.9 mg/dL (8.5-10.1); Carbon Dioxide 25.4 mMol/L (20.0-31.0); Chloride 110 mMol/L (98-107); Creatinine (Component) 0.9 mg/dL (0.6-1.3); Globulin 3.1 gm/dL (2.3-3.5); Glucose 125 mg/dL (74-106); Magnesium 2.2 mg/dL (1.6-2.6); Osmolality,Calculated 283 (275-295); Potassium 4.1 mMol/L (3.4-5.1); Sodium 142 mMol/L (136-145); Total Protein 8.1 gm/dL (5.7-8.2); Troponin I < 0.002 ng/mL (0.0-0.045); eGFR > 60 See Note
[2025-05-04 15:25] LABS: Collection Type, Urine Clean Catch; Squamous Epithelial Cell,Urine 0 /hpf (0-5)
[2025-05-04 15:35] LABS: Bilirubin,Urine Negative (Negative); Blood,Urine 2+ (Negative); Clarity,Urine Clear (Clear/Hazy); Color,Urine Lt-Yellow (Lt Yel-Yel); Glucose, Urine Negative (Negative); Ketones,Urine Negative (Negative); Leukocyte Esterase,Urine Negative (Negative); Nitrite,Urine Negative (Negative); PH,Urine 6.5 (5.0-7.0); Protein,Urine Negative (Neg - Trace); RBC,Urine 2 /hpf (0-3); Specific Gravity,Urine 1.011 (1.001-1.035); Urobilinogen,Urine Negative mg/dL (0.0-1.0); WBC,Urine 1 /hpf (0-5)
[2025-05-04 17:27] VITALS: BP 147/98; PULSE 102; RESP 18; TEMP 37.1; O2SAT 95
--- NOTE | 2025-05-04 17:28 | PD.EDCHEST ---
ED Chest Pain RME/HPI General Chief Complaint: General Adult/Misc Complain Stated Complaint: RINGING IN EARS FOR 2 WEEKS Time Seen by Provider: 05/04/25 14:01 Source: patient Arrival date/time: 05/04/25 13:50 Limitations: language barrier RME / HPI RME / HPI narrative: 05/04/25 13:50 65-year-old female with a history of hyperlipidemia, hypertension, type 2 diabetes presents to the emergency room with a chief complaint of chest pain, palpitations x 3 days. She has a history of anxiety. She was seen in clinic for this and given Tylenol. Patient also is complaining of bilateral ear pain She has no nausea, vomiting, or syncope. No lower leg edema. No fevers or chills. No history of ACS or pulmonary emboli. No recent traveling or surgeries. There are no other acute complaints.. Related Data Home Medications ?Medication ?Instructions ?Recorded ?Confirmed atorvastatin 20 mg tablet 20 mg PO QDAY 04/04/22 01/01/24 losartan 100 mg tablet 100 mg PO QDAY 04/04/22 01/01/24 metformin 500 mg tablet,extended 500 mg PO HS 04/04/22 01/01/24 release 24 hr metoprolol succinate 25 mg 25 mg PO QDAY 08/28/23 01/01/24 tablet,extended release 24 hr hydroxyzine HCl 25 mg tablet 25 mg PO HS PRN Anxiety 01/01/24 01/01/24 loratadine 10 mg tablet 10 mg PO QDAY 01/01/24 01/01/24 Previous Rx's ?Medication ?Instructions ?Recorded ibuprofen 600 mg tablet 600 mg PO TID PRN pain #30 tabs 07/31/22 cyclobenzaprine 10 mg tablet 10 mg PO TID PRN muscle spasm #30 04/14/24 tabs ibuprofen 800 mg tablet 800 mg PO TID PRN pain #30 tabs 04/14/24 amoxicillin 875 mg-potassium 1 tab PO BID #14 tabs 10/01/24 clavulanate 125 mg tablet Allergies Allergy/AdvReac Type Severity Reaction Status Date / Time No Known Allergies Allergy Verified 05/04/25 13:53 Review of Systems Review of Systems Systems Reviewed: All systems reviewed, normal except as documented ED Exam General Limitations: Present language barrier General appearance: Present alert and in no apparent distress Head Head exam: Present atraumatic Eye Eye exam: Present normal appearance, PERRL and EOMI ENT ENT exam: Present normal exam, normal oropharynx and mucous membranes moist Neck Neck exam: Present normal inspection, full ROM and trachea midline Chest Chest inspection: Present normal inspection and symmetric chest wall rise Respiratory Respiratory exam: Present normal lung sounds bilaterally Cardiovascular Cardiovascular exam: Present regular rate, normal rhythm and normal heart sounds Abdominal Exam Abdominal exam: Present soft and normal bowel sounds Extremities Exam Extremities exam: Present normal inspection and full ROM Back Exam Back exam: Present normal inspection and full ROM Neurological Exam Neurological exam: Present alert, oriented X3 and CN II-XII intact Psychiatric Psychiatric exam: Present normal affect and normal mood Skin Skin exam: Present warm, dry, intact and normal color Course Quality Measures none Orders Category Date Time Status EKG (ED ONLY) *Do not use* NOW Care 05/04/25 14:13 Completed Irrigation both ears ONCE Care 05/04/25 14:13 Active EKG (ED Only) Stat Exams 05/04/25 14:13 Ordered XR chest 2V Stat Exams 05/04/25 14:13 Completed B-Type Natriuretic Peptide Stat Lab 05/04/25 14:33 Completed CBC Stat Lab 05/04/25 14:33 Completed Comprehensive Metabolic Panel Stat Lab 05/04/25 14:33 Completed Magnesium Stat Lab 05/04/25 14:33 Completed Partial Thromboplastin Time Stat Lab 05/04/25 14:33 Completed Prothrombin Time with INR Stat Lab 05/04/25 14:33 Completed Troponin I Stat Lab 05/04/25 14:33 Completed Urinalysis Stat Lab 05/04/25 15:00 Completed Vital Signs Vital signs: Vital Signs Temperature 98.6 F 05/04/25 14:12 Pulse Rate 133 H 05/04/25 14:12 Respiratory Rate 17 05/04/25 14:12 Blood Pressure 154/92 H 05/04/25 14:12 Pulse Oximetry (%) 96 05/04/25 14:12 Oxygen Delivery Method Room Air 05/04/25 14:12 Chest Pain MDM Narrative MDM Narrative:: 65-year-old female history of hypertension, diabetes, and anxiety is here today with intermittent chest pain for the past few days. She saw her PCP for this and was given Tylenol. Her work appears center remarkable. Her CBC, metabolic panel, troponin, EKG, chest x-ray are all in remarkable. We discussed her test results in detail. She will continue her current therapies. Follow-up in clinic. Return as needed for any worsening or emergent changes. Patient data External records reviewed:: None Clinical information provided by:: patient Social determinants that could affect healthcare access:: none Patient has the following chronic illnesses:: Anxiety, hypertension, diabetes How is presenting disease/condition affected by chronic disease/condition?: exacerbated by Evaluation data The following diagnostics were reviewed and interpreted by me:: lab results, radiology exam(s) and EKG tracing(s) (Sinus tachycardia [address] changes or dynamic T waves.) Lab and/or radiology exams considered but not ordered:: n/a Interpretation Summary: Workup was essentially unremarkable here. Medications / Prescriptions Medications or Prescriptions considered but not ordered:: n/a Medication administrations:: n/a Consultations Consultation(s) initiated? (list below): No Diagnosis Chest Pain Differential Diagnosis: pneumothorax, atypical chest pain, st elevation myocardial infarction, costochondritis and chest pain Most likely diagnosis given after review of the tests above:: Chest pain, anxiety Admission Indicated Admission indicated?: not indicated Admission Request Was there a request for admission?: No Disposition Plan Disposition Plan: Discharge Discharge Attestation Discharge Attestation: The patient and all family members were given an opportunity to ask questions and understood the discharge instructions. Discharge instructions specifically effects, indications for sooner follow up or return to the emergency department, and the expected course of current diagnosis. 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: with dinner ibuprofen 600 mg tablet 600 mg PO TID PRN (Reason: pain) Qty: 30 0RF metoprolol succinate 25 mg Tablet Extended Release 24 Hr 25 mg PO QDAY hydroxyzine HCl 25 mg Tablet 25 mg PO HS PRN (Reason: Anxiety) loratadine 10 mg Tablet 10 mg PO QDAY amoxicillin-pot clavulanate 875-125 mg tablet 1 tab PO BID Qty: 14 0RF cyclobenzaprine 10 mg tablet 10 mg PO TID PRN (Reason: muscle spasm) Qty: 30 0RF ibuprofen 800 mg tablet 800 mg PO TID PRN (Reason: pain) Qty: 30 0RF Referrals: No Primary/Family,Physician [Primary Care Provider] - In 1 week Problem List Clinical Impression: Chest pain, non-cardiac, Anxiety Patient/Caregiver Discharge Instructions Education Materials: Anxiety Disorders Tx Therapy, ED Chest Pain, Noncardiac Additional Instructions: -Continue current medications. -Follow-up with your primary doctor soon as possible. -Return here as needed for any worsening or emergent changes. Print Language: St Helen[place] Stand Alone Forms: Leticia Award Info., Patient Portal Info Letter
== END 2025-05-04 17:42 | disposition home or self-care (01) ==
PROVIDERS: Nurse Practitioner Family; Emergency Provider Family Medicine
DX: R07.89 Other chest pain (principal); F41.9 Anxiety disorder, unspecified; E11.9 Type 2 diabetes mellitus without complications; E78.5 Hyperlipidemia, unspecified; I10 Essential (primary) hypertension
CPT/HCPCS: 36415; 71046; 80053; 81001; 83735; 83880; 84484; 85025; 85610; 85730; 93005; 99283

== ENCOUNTER 2025-05-06 13:05 | Emergency (ER) | payer MEDICARE, MEDICAID, SELFPAY ==
[2025-05-06 13:15] VITALS: BP 134/82; PULSE 95; RESP 20; TEMP 36.6; O2SAT 95
--- NOTE | 2025-05-06 13:27 | PD.EDRME ---
Rapid Medical Screening Exam E Arrival date/time: 05/06/25 13:05 This is a 65-year-old female with multiple complaints. Patient initially stated that her complaint was right-sided ear pain and headache along with sore throat. Patient now also complains of abdominal pain and nausea. Patient also reports that she is feels lightheaded. Patient not able to tell me how long she has felt this way. Patient also complains of ringing to her right ear. Patient has a history of diabetes, anxiety, and high blood pressure. I have greeted and performed a focused initial assessment of this patient. Initial appropriate labs ordered at this time. A comprehensive ED assessment and evaluation of the patient and analysis of all test and completion of medical decision making process will be conducted by additional ED provider. Chief Complaint: Ear Time Seen by Provider: 05/06/25 13:09 Vital signs: Vital Signs Temperature 97.9 F 05/06/25 13:15 Pulse Rate 95 05/06/25 13:15 Respiratory Rate 20 05/06/25 13:15 Blood Pressure 134/82 H 05/06/25 13:15 Pulse Oximetry (%) 95 05/06/25 13:15 Oxygen Delivery Method Room Air 05/06/25 13:15
--- NOTE | 2025-05-06 13:28 | XR_ITS ---
Examination: PA lateral chest 2 views Technique: Upright PA lateral chest 2 views Date and time: May 06, 2025, 1346 hrs. Comparison May 04, 2025 Indications: Chest pain and dizziness today. Findings: Minor prominence left ventricle No aspiration pneumonia. The osseous structures are demineralized Impression: No aspiration pneumonia
--- NOTE | 2025-05-06 13:28 | EKG_ITS ---
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
[2025-05-06 14:37] LABS: Basophils # (Auto) 0.1 Thou/mm3 (0.0-0.2); Basophils % (Auto) 1 % (0-2.5); Eosinophils # (Auto) 0.0 Thou/mm3 (0.0-0.5); Eosinophils % (Auto) 0 % (0-10); Hematocrit 40.5 % (36.0-46.0); Hemoglobin 13.4 g/dL (12.0-16.0); Immature Granulocytes Auto 0.03 Thou/mm3 (0.00-0.00); Lymphocytes # (Auto) 2.9 Thou/mm3 (1.0-4.8); Lymphocytes % (Auto) 33 % (10-50); Mean Corpuscular HGB Conc 33.1 g/dl (31.0-37.0); Mean Corpuscular Hemoglobin 28.9 pg (25.0-35.0); Mean Corpuscular Volume 88 fL (80-100); Monocytes # (Auto) 0.5 Thou/mm3 (0.0-0.8); Monocytes % (Auto) 6 % (0-12); Neutrophils # (Auto) 5.2 Thou/mm3 (1.8-7.7); Neutrophils % (Auto) 59 % (37-80); Nucleated Red Blood Cell # 0.00 Thou/mm3 (0.00-0.00); Nucleated Red Blood Cell % 0 /100 WBC (0); Platelet Count 195 Thou/mm3 (140-440); RDW Standard Deviation 43.1 fL (36.4-46.3); Red Blood Count 4.63 Miln/mm3 (4.00-5.20); White Blood Count 8.7 Thou/mm3 (3.6-11.0)
[2025-05-06 14:54] LABS: Alanine Aminotransferase 24 U/L (10-49); Albumin, Serum 4.9 gm/dL (3.4-4.8); Albumin/Globulin Ratio 1.5 (1.2-2.2); Alkaline Phosphatase 108 U/L (46-116); Anion Gap 12 (7-16); Aspartate Amino Transferase 29 U/L (0-34); BUN/Creatinine Ratio 7 Ratio (12-20); Bilirubin,Total 0.8 mg/dL (0.3-1.2); Blood Urea Nitrogen 6 mg/dL (9-23); Calcium 9.9 mg/dL (8.3-10.6); Calcium (Corrected) 9.9 mg/dL (8.5-10.1); Carbon Dioxide 22.6 mMol/L (20.0-31.0); Chloride 108 mMol/L (98-107); Creatinine (Component) 0.9 mg/dL (0.6-1.3); Globulin 3.2 gm/dL (2.3-3.5); Glucose 128 mg/dL (74-106); Lipase 44 U/L (12-53); Osmolality,Calculated 284 (275-295); Potassium 4.4 mMol/L (3.4-5.1); Sodium 143 mMol/L (136-145); Total Protein 8.1 gm/dL (5.7-8.2); Troponin I < 0.002 ng/mL (0.0-0.045); eGFR > 60 See Note
[2025-05-06 15:13] LABS: B-Type Natriuretic Peptide < 20 pg/mL (0-100)
[2025-05-06 15:30] VITALS: BP 161/89; PULSE 75; RESP 18; TEMP 36.3; O2SAT 96
--- NOTE | 2025-05-06 15:44 | EDNOTE_ITS ---
ED Ear RME/HPI General Chief complaint: Ear Stated complaint: Right ear pain, HARPER, sore throat Time Seen by Provider: 05/06/25 13:09 Arrival date/time: 05/06/25 13:05 Limitations: no limitations RME / HPI RME / HPI Narrative: 05/06/25 13:05 This is a 65-year-old female with multiple complaints. Patient initially stated that her complaint was right-sided ear pain and headache along with sore throat. Patient now also complains of abdominal pain and nausea. Patient also reports that she is feels lightheaded. Patient also complains of ringing to her right ear. Patient has a history of diabetes, anxiety, and high blood pressure. r. Related Data Home Medications ?Medication ?Instructions ?Recorded ?Confirmed atorvastatin 20 mg tablet 20 mg PO QDAY 04/04/2212/31 losartan 100 mg tablet 100 mg PO QDAY 04/04/2211/25 metformin 500 mg tablet,extended 500 mg PO HS 04/04/22 01/01/24 release 24 hr metoprolol succinate 25 mg 25 mg PO QDAY 08/28/2311/25 tablet,extended release 24 hr hydroxyzine HCl 25 mg tablet 25 mg PO HS PRN Anxiety 0 01/01/24 01/01/24 loratadine 10 mg tablet 10 mg PO QDAY 01/01/2412/31 Previous Rx's ?Medication ?Instructions ?Recorded ibuprofen 600 mg tablet 600 mg PO TID PRN pain #30 t abs 07/31/22 cyclobenzaprine 10 mg tablet 10 mg PO TID PRN muscle s pasm #30 04/14/24 tabs ibuprofen 800 mg tablet 800 mg PO TID PRN pain #30 t abs 04/14/24 amoxicillin 875 mg-potassium 1 tab PO BID #14 tabs clavulanate 125 mg tablet Allergies Allergy/AdvReac Type Severity Reaction Status Date / Time No Known Allergies Allergy Verified 05/06/25 13:11 Review of Systems Review of Systems Systems Reviewed: All systems reviewed, normal except as documented ED Exam General Limitations: Present no limitations General appearance: Present alert and in no apparent distress Head Head exam: Present atraumatic Eye Eye exam: Present normal appearance, PERRL and EOMI ENT ENT exam: Present normal exam, normal oropharynx and mucous membranes moist Neck Neck exam: Present normal inspection, full ROM and trachea midline Chest Chest inspection: Present normal inspection and symmetric chest wall rise Respiratory Respiratory exam: Present normal lung sounds bilaterally Cardiovascular Cardiovascular exam: Present regular rate, normal rhythm and normal heart sounds Abdominal Exam Abdominal exam: Present soft and normal bowel sounds Extremities Exam Extremities exam: Present normal inspection and full ROM Back Exam Back exam: Present normal inspection and full ROM Neurological Exam Neurological exam: Present alert and oriented X3 Psychiatric Psychiatric exam: Present normal affect and normal mood Skin Skin exam: Present warm, dry, intact and normal color Course Quality Measures none Orders Category Date Time Status EKG (ED ONLY) *Do not use* NOW Care 05/06/25 13:29 Completed EKG (ED Only) Stat Exams 05/06/25 13:28 Draft XR chest 2V Stat Exams 05/06/25 13:28 Completed BNP [B-Type Natriuretic Peptide] Stat Lab 05/06/25 14:08 Completed CBC Stat Lab 05/06/25 14:08 Completed Comprehensive Metabolic Panel Stat Lab 05/06/25 14:08 Completed Lipase Stat Lab 05/06/25 14:08 Completed Troponin I Stat Lab 05/06/25 14:08 Completed Ondansetron Odt [Zofran Odt] Med 05/06/25 13:28 Discontinued 4 mg PO X1 ONE Vital Signs Vital signs: Vital Signs Temperature 97.9 F 05/06/25 13:15 Pulse Rate 95 05/06/25 13:15 Respiratory Rate 20 05/06/25 13:15 Blood Pressure 134/82 H 05/06/25 13:15 Pulse Oximetry (%) 95 05/06/25 13:15 Oxygen Delivery Method Room Air 05/06/25 13:15 Ear MDM Narrative MDM Narrative:: 65-year-old female is here today of chronic dizziness, anxiety, and sore throat. She was seen here recently for anxiety. She is followed by her primary care provider for this. On exam, patient is anxious appearing and in no visible signs of stress. Vital signs are stable. Her workup here is unremarkable. I do believe the patient be discharged from the ER for outpatient follow-up. She may consider outpatient referral to ENT for her ear symptoms and dizziness. She is invited return here as needed for any worsening or emergent changes Patient data External records reviewed:: [facility] previous records Clinical information provided by:: patient Social determinants that could affect healthcare access:: none Patient has the following chronic illnesses:: Anxiety, hypertension, diabetes How is presenting disease/condition affected by chronic disease/condition?: e xacerbated by Evaluation data The following diagnostics were reviewed and interpreted by me:: lab results (No leukocytosis, elevated troponin, or metabolic derangement), radiology exam(s) (Clear and expanded lungs without any mass or infiltrate) and EKG tracing(s) (Normal sinus rhythm at [address] changes or dynamic T waves) Lab and/or radiology exams considered but not ordered:: n/a Interpretation Summary: Negative troponin, no leukocytosis or anemia, no metabolic derangement Medications / Prescriptions Medications or Prescriptions considered but not ordered:: n/a Medication administrations:: Medication Administration History Discontinued Medications Ondansetron HCl (Ondansetron Odt 4 Mg Tabrap) 4 mg PO X1 ONE; Protocol Stop: 05/06/25 13:29 Last Admin: 05/06/25 14:19 Dose: Not Given Documented By: CONSUELO Non-Admin Reason: Patient Refused See above Consultations Consultation(s) initiated? (list below): No Diagnosis Ear Differential Diagnosis: otitis media, foreign body in ear and cerumen impaction Most likely diagnosis given after review of the tests above:: Anxiety, dizziness Admission Indicated Admission indicated?: not indicated Admission Request Was there a request for admission?: No Disposition Plan Disposition Plan: Discharge Discharge Attestation Discharge Attestation: The patient and all family members were given an opportunity to ask questions and understood the discharge instructions. Discharge instructions specifically effects, indications for sooner follow up or return to the emergency department, and the expected course of current diagnosis. Patient condition: Stable Medical Decision Making Lab Data 05/06/25 14:08 05/06/25 14:08 Labs: Lab Results 05/06/25 Range/Units 14:08 WBC 8.7 (3.6-11.0) Thou/mm3 RBC 4.63 (4.00-5.20) Miln/mm3 Hgb 13.4 (12.0-16.0) g/dL Hct 40.5 (36.0-46.0) % MCV 88 (80-100) fL MCH 28.9 (25.0-35.0) pg MCHC 33.1 (31.0-37.0) g/dl RDW Std Deviation 43.1 (36.4-46.3) fL Plt Count 195 (140-440) Thou/mm3 Neut % (Auto) 59 (37-80) % Lymph % (Auto) 33 (10-50) % [place] % (Auto) 6 (0-12) % Eos % (Auto) 0 (0-10) % Baso % (Auto) 1 (0-2.5) % Neut # (Auto) 5.2 (1.8-7.7) Thou/mm3 Lymph # (Auto) 2.9 (1.0-4.8) Thou/mm3 [place] # (Auto) 0.5 (0.0-0.8) Thou/mm3 Eos # (Auto) 0.0 (0.0-0.5) Thou/mm3 Baso # (Auto) 0.1 (0.0-0.2) Thou/mm3 Immature Gran # (Auto) 0.03 H (0.00-0.00) Thou/mm3 Absolute Nucleated RBC 0.00 (0.00-0.00) Thou/mm3 Immature Gran % 0 (0-0) % Nucleated RBC % 0 (0) /100 WBC Sodium 143 (136-145) mMol/L Potassium 4.4 (3.4-5.1) mMol/L Chloride 108 H (98-107) mMol/L Carbon Dioxide 22.6 (20.0-31.0) mMol/L Anion Gap 12 (7-16) BUN 6 L (9-23) mg/dL Creatinine 0.9 (0.6-1.3) mg/dL Estim Creat Clear Calc Not Performed. eGFR > 60 (60 - ) See Note BUN/Creatinine Ratio 7 L (12-20) Ratio Glucose 128 H (74-106) mg/dL Calculated Osmolality 284 (275-295) Calcium 9.9 (8.3-10.6) mg/dL Corrected Calcium 9.9 (8.5-10.1) mg/dL Total Bilirubin 0.8 (0.3-1.2) mg/dL AST 29 (0-34) U/L ALT 24 (10-49) U/L Alkaline Phosphatase 108 (46-116) U/L Troponin I < 0.002 (0.0-0.045) ng/mL B-Natriuretic Peptide < 20 (0-100) pg/mL Total Protein 8.1 (5.7-8.2) gm/dL Albumin 4.9 H (3.4-4.8) gm/dL Globulin 3.2 (2.3-3.5) gm/dL Albumin/Globulin Ratio 1.5 (1.2-2.2) Lipase 44 (12-53) U/L Discharge Plan Plan Patient Disposition: HOME (Self Care) Patient condition on transfer: Stable Prescriptions/Referrals Prescriptions/Med Rec: No Action atorvastatin 20 mg tablet 20 mg PO QDAY Patient Comments: TOME EVY TABLETA TODOS LOS D FOR 90 DAYS losartan 100 mg tablet 100 mg PO QDAY Patient Comments: TOME EVY TABLETA TODOS LOS D FOR 90 DAYS metformin 500 mg tablet extended release 24 hr 500 mg PO HS Patient Comments: TOME EVY TABLETA POR V A ORAL TODOS LOS D CON [employer] Rx Instructions: with dinner ibuprofen 600 mg tablet 600 mg PO TID PRN (Reason: pain) Qty: 30 0RF metoprolol succinate 25 mg Tablet Extended Release 24 Hr 25 mg PO QDAY hydroxyzine HCl 25 mg Tablet 25 mg PO HS PRN (Reason: Anxiety) loratadine 10 mg Tablet 10 mg PO QDAY amoxicillin-pot clavulanate 875-125 mg tablet 1 tab PO BID Qty: 14 0RF cyclobenzaprine 10 mg tablet 10 mg PO TID PRN (Reason: muscle spasm) Qty: 30 0RF ibuprofen 800 mg tablet 800 mg PO TID PRN (Reason: pain) Qty: 30 0RF Referrals: Sylwia Curry, [facility] [Primary Care Provider] - In 1 week Problem List Clinical Impression: Dizziness, Anxiety Patient/Caregiver Discharge Instructions Education Materials: Anxiety Disorders Tx Therapy, ED Dizziness, Uncertain Cause Additional Instructions: - Follow-up with your primary clinic for further workup. Consider referral to ENT as needed. - Return as needed for worsening or emergent changes. Print Language: Belarusian Stand Alone Forms: Leticia Award Info., Patient Portal Info Letter
== END 2025-05-06 15:57 | disposition home or self-care (01) ==
PROVIDERS: Nurse Practitioner Family; Emergency Provider Emergency Medicine; PCP Nurse Practitioner Family
DX: F41.9 Anxiety disorder, unspecified (principal); R07.9 Chest pain, unspecified; R42 Dizziness and giddiness; I44.4 Left anterior fascicular block; I10 Essential (primary) hypertension; H92.01 Otalgia, right ear; R51.9 Headache, unspecified
CPT/HCPCS: 36415; 71046; 80053; 83690; 83880; 84484; 85025; 93005; 99283

== ENCOUNTER 2025-05-10 12:42 | Emergency (ER) | payer MEDICARE, MEDICAID, SELFPAY ==
[2025-05-10 13:13] VITALS: BP 131/88; PULSE 118; RESP 20; TEMP 37.3; O2SAT 95
--- NOTE | 2025-05-10 13:21 | PD.EDRME ---
Rapid Medical Screening Exam RME Arrival date/time: 05/10/25 12:42 This is a 65-year-old female who presents to the emergency department with complaints of 4-day history of cough, shortness of breath feeling weak complains of chest pain today. I have greeted and performed a focused initial assessment of this patient. Initial appropriate labs ordered at this time. A comprehensive ED assessment and evaluation of the patient and analysis of all test and completion of medical decision making process will be conducted by additional ED provider. Chief Complaint: Weakness Time Seen by Provider: 05/10/25 12:57 Vital signs: Vital Signs Temperature 99.1 F 05/10/25 13:13 Pulse Rate 118 H 05/10/25 13:13 Respiratory Rate 20 05/10/25 13:13 Blood Pressure 131/88 H 05/10/25 13:13 Pulse Oximetry (%) 95 05/10/25 13:13 Oxygen Delivery Method Room Air 05/10/25 13:13
--- NOTE | 2025-05-10 13:22 | EKG_ITS ---
[facility] Test Date: 2025-05-10 Pat Name: GISSEL PERAZA Department: Room: - Gender: Female Heel Buffer: : 1960 Requested By: Christy Hester ([facility]) Alanis Order Number: [id number] Reading MD: Christy Hester ([facility]) M Measurements Intervals [place] Rate: 105 P: 27 FL: 144 QRS: -71 QRSD: 80 T: 24 QT: 311 QTc: 413 Interpretive Statements SINUS TACHYCARDIA PATTERN CONSISTENT WITH PULMONARY DISEASE POSSIBLE RIGHT VENTRICULAR CONDUCTION DELAY [RSR (QR) IN V1/V2] LEFT ANTERIOR FASCICULAR BLOCK [QRS AXIS <= -45, QR IN I, RS IN II] PROBABLE SEPTAL MYOCARDIAL INFARCTION , OF INDETERMINATE AGE [35 ms Q WAVE IN V1/V2] Compared to ECG 05/06/2025 13:30:44 Myocardial infarct finding now present Sinus rhythm no longer present /store/S0/[id number].pdf
--- NOTE | 2025-05-10 13:23 | XR_ITS ---
Examination: PA lateral chest 2 views TECHNIQUE: Upright PA lateral chest 2 views Date and time: May 10, 2025 at 1349 hours Comparison May 06, 2025 INDICATIONS: Coughing beginning 4 days ago. FINDINGS: Parenchymal disease in the right middle lobe, obscuring detail the right cardiac contour Normal heart size Prominent osteopenia IMPRESSION: Right middle lobe parenchymal disease, differential would include scarring versus pneumonia, clinical correlation advised
[2025-05-10 13:50] LABS: Lactate (Lactic Acid) 1.8 mMol/L (0.4-2.0)
--- NOTE | 2025-05-10 13:55 | PC.NURSE ---
Pt was not in RME 1 for EKG. Can not find PT.
[2025-05-10 13:56] LABS: Basophils # (Auto) 0.1 Thou/mm3 (0.0-0.2); Basophils % (Auto) 1 % (0-2.5); Eosinophils # (Auto) 0.0 Thou/mm3 (0.0-0.5); Eosinophils % (Auto) 1 % (0-10); Hematocrit 43.5 % (36.0-46.0); Hemoglobin 14.7 g/dL (12.0-16.0); Immature Granulocytes Auto 0.01 Thou/mm3 (0.00-0.00); Lymphocytes # (Auto) 3.2 Thou/mm3 (1.0-4.8); Lymphocytes % (Auto) 51 % (10-50); Mean Corpuscular HGB Conc 33.8 g/dl (31.0-37.0); Mean Corpuscular Hemoglobin 29.1 pg (25.0-35.0); Mean Corpuscular Volume 86 fL (80-100); Monocytes # (Auto) 0.7 Thou/mm3 (0.0-0.8); Monocytes % (Auto) 12 % (0-12); Neutrophils # (Auto) 2.2 Thou/mm3 (1.8-7.7); Neutrophils % (Auto) 35 % (37-80); Nucleated Red Blood Cell # 0.00 Thou/mm3 (0.00-0.00); Nucleated Red Blood Cell % 0 /100 WBC (0); Platelet Count 176 Thou/mm3 (140-440); RDW Standard Deviation 42.6 fL (36.4-46.3); Red Blood Count 5.05 Miln/mm3 (4.00-5.20); White Blood Count 6.3 Thou/mm3 (3.6-11.0)
[2025-05-10 14:10] LABS: INR 1.0 (0.9-1.3); Partial Thromboplastin Time 29.0 Seconds (22.0-36.0); Prothrombin Time 11.0 Seconds (9.0-12.2)
[2025-05-10 14:13] LABS: B-Type Natriuretic Peptide < 20 pg/mL (0-100)
[2025-05-10 14:27] LABS: Alanine Aminotransferase 55 U/L (10-49); Albumin, Serum 5.1 gm/dL (3.4-4.8); Albumin/Globulin Ratio 1.6 (1.2-2.2); Alkaline Phosphatase 105 U/L (46-116); Anion Gap 16 (7-16); Aspartate Amino Transferase 59 U/L (0-34); BUN/Creatinine Ratio 8 Ratio (12-20); Bilirubin,Total 0.5 mg/dL (0.3-1.2); Blood Urea Nitrogen 7 mg/dL (9-23); Calcium 9.7 mg/dL (8.3-10.6); Calcium (Corrected) 9.7 mg/dL (8.5-10.1); Carbon Dioxide 19.4 mMol/L (20.0-31.0); Chloride 104 mMol/L (98-107); Creatinine (Component) 0.9 mg/dL (0.6-1.3); Globulin 3.2 gm/dL (2.3-3.5); Glucose 138 mg/dL (74-106); Lipase 73 U/L (12-53); Magnesium 1.9 mg/dL (1.6-2.6); Osmolality,Calculated 277 (275-295); Potassium 4.0 mMol/L (3.4-5.1); Procalcitonin < 0.04 ng/ml (0.0-0.49); Sodium 139 mMol/L (136-145); Total Protein 8.3 gm/dL (5.7-8.2); Troponin I < 0.002 ng/mL (0.0-0.045); eGFR > 60 See Note
[2025-05-10 17:25] VITALS: BP 133/88; PULSE 95; RESP 17; O2SAT 96
[2025-05-10] MEDS: cefTRIAXone 2 GM in SODIUM CHLORIDE 0.9% (Popper) 50 ML IV (20:18)
[2025-05-10] MEDS: SODIUM CHLORIDE 0.9% 1000 ML 1,000 ML 999 ML IV (20:19)
--- NOTE | 2025-05-10 20:20 | EDNOTE_ITS ---
ED Weakness RME/HPI General Chief complaint: Weakness Stated complaint: Weak X 2 days Time Seen by Provider: 05/10/25 12:57 Arrival date/time: 05/10/25 12:42 This is a case of 65-year-old female history of hypertension and diabetes came in in the emergency room due to generalized weakness history of present illness started 4 days prior to arrival in the emergency room when the patient had productive cough and mild shortness of breath with nasal congestion no fever no ear pain no sore throat due to persistence of the symptoms now with generalized weakness thus patient decided to start consult here in the emergency room patient also have pleuritic chest pain when coughing no palpitation Limitations: no limitations RME / HPI RME / HPI Narrative: 05/10/25 12:42 This is a 65-year-old female who presents to the emergency department with complaints of 4-day history of cough, shortness of breath feeling weak complains of chest pain today. I have greeted and performed a focused initial assessment of this patient. Initial appropriate labs ordered at this time. A comprehensive ED assessment and evaluation of the patient and analysis of all test and completion of medical decision making process will be conducted by additional ED provider. Related Data Home Medications ?Medication ?Instructions ?Recorded ?Confirmed atorvastatin 20 mg tablet 20 mg PO QDAY 04/04/2212/31 losartan 100 mg tablet 100 mg PO QDAY 04/04/2211/25 metformin 500 mg tablet,extended 500 mg PO HS 04/04/22 01/01/24 release 24 hr metoprolol succinate 25 mg 25 mg PO QDAY 08/28/2311/25 tablet,extended release 24 hr hydroxyzine HCl 25 mg tablet 25 mg PO HS PRN Anxiety 0 01/01/24 01/01/24 loratadine 10 mg tablet 10 mg PO QDAY 01/01/2412/31 Previous Rx's ?Medication ?Instructions ?Recorded ibuprofen 600 mg tablet 600 mg PO TID PRN pain #30 t abs 07/31/22 cyclobenzaprine 10 mg tablet 10 mg PO TID PRN muscle s pasm #30 04/14/24 tabs ibuprofen 800 mg tablet 800 mg PO TID PRN pain #30 t abs 04/14/24 amoxicillin 875 mg-potassium 1 tab PO BID #14 tabs clavulanate 125 mg tablet albuterol sulfate 90 mcg/actuation 2 puff inhalation Q 4H PRN 05/10/25 aerosol inhaler (Ventolin HFA) shortness of breath or wheezing #8.5 grams azithromycin 250 mg tablet 250 mg PO QDAY 5 days #5 ta bs 05/10/25 nirmatrelvir 300 mg (150 mg 3 tab PO BID 5 days #30 ta bs 05/10/25 x2)-ritonavir 100 mg tablet,dose pack (Paxlovid) promethazine-DM 6.25 mg-15 mg/5 mL 5 ml PO Q6H PRN cou gh #118 mL 05/10/25 oral syrup Allergies Allergy/AdvReac Type Severity Reaction Status Date / Time No Known Allergies Allergy Verified 05/10/25 12:46 Review of Systems Review of Systems Systems Reviewed: All systems reviewed, normal except as documented Constitutional Constitutional: Reports system reviewed and no additional complaints, except as documented, Denies chills, Denies fever(s) and Reports weakness ENT Ears, Nose, Mouth, and Throat: Reports system reviewed and no additional complaints, except as documented, Reports as per HPI, Reports nasal congestion and Reports nasal discharge Cardiovascular Cardiovascular: Reports system reviewed and no additional complaints, except as documented, Reports as per HPI, Reports chest pain and Reports dyspnea Respiratory Respiratory: Reports system reviewed and no additional complaints, except as doc umented, Reports as per HPI, Reports cough and Reports dyspnea Gastrointestinal Gastrointestinal: Reports system reviewed and no additional complaints, except as documented and Reports as per HPI Genitourinary Genitourinary: Reports system reviewed and no additional complaints, except as documented and Reports as per HPI Musculoskeletal Musculoskeletal: Reports system reviewed and no additional complaints, except as documented and Reports as per HPI Neurologic Neurologic: Reports system reviewed and no additional complaints, except as documented, Reports as per HPI and Reports weakness Past Medical History Past Medical History NEUROLOGIC: Negative Neurological Disorders or Seizures CARDIAC: Positive Cardiac Disorders, Hypercholesterolemia and Hypertension; Negative Congestive Heart Failure RESPIRATORY: Positive Asthma, Bronchitis and Pneumonia; Negative Chronic Obstructive Pulmonary Disease (COPD) GASTROINTESTINAL: Positive Gastrointestinal Disorders and Obesity GENITOURINARY: Negative Genitourinary Disorders or Renal Disease REPRODUCTIVE: Positive Endometriosis and Previous Pregnancies MUSCULOSKELETAL: Positive Musculoskeletal Disorders and Arthritis ENT: Positive Cataracts (beau) and Ear Infection (right tympano has a hole, pr pt) ENDOCRINE: Positive Endocrine Disorders and Diabetes Mellitus Type 2 (pre diabetes); Negative Diabetes Mellitus Type 1 HEMATOLOGIC: Negative Blood Disorders or Anemia PSYCHO/SOCIAL: Positive Anxiety OTHER HISTORY: Positive Shingles; Negative Hospitalization, Autoimmune Disease, Blood Transfusions, Blood Transfusion Reaction, Anesthesia Reactions or Cancer Family History FAMILY HISTORY: Positive Family Cardiac Disorders; Negative Family Psychiatric Problems, Family Respiratory Disorders, Family Gastrointestinal Problems, Family Cancer, Family Surgery or Family Anesthesia Reaction Surgical History SURGICAL: Positive Eye Surgery (Left pterygium,) Social History SMOKING STATUS: Never smoker SUBSTANCE USE: does not use ED Exam General Limitations: Present no limitations General appearance: Present alert, in no apparent distress and other (Awake alert oriented not in distress nontoxic looking well-hydrated well-nourished) Head Head exam: Present atraumatic, normocephalic and normal inspection Eye Eye exam: Present normal appearance, PERRL and EOMI ENT ENT exam: Present normal exam, normal oropharynx and mucous membranes moist Neck Neck exam: Present normal inspection, full ROM and trachea midline; Absent tenderness, meningismus, lymphadenopathy or thyromegaly Chest Chest inspection: Present normal inspection and symmetric chest wall rise; Absent tenderness or rash Respiratory Respiratory exam: Present normal lung sounds bilaterally and other (Occasional rhonchi right lower lung no retraction); Absent respiratory distress, wheezes, stridor, accessory muscle use or prolonged expiratory phase Cardiovascular Cardiovascular exam: Present regular rate, normal rhythm and normal heart sounds; Absent bradycardia, tachycardia, irregular rhythm, systolic murmur or d iastolic murmur Abdominal Exam Abdominal exam: Present soft and normal bowel sounds; Absent distention, tenderness, guarding, rebound, rigidity, diminished bowel sounds, hyperactive bowel sounds or hypoactive bowel sounds Extremities Exam Extremities exam: Present normal inspection and full ROM Back Exam Back exam: Present normal inspection and full ROM Neurological Exam Neurological exam: Present alert, oriented X3, CN II-XII intact, normal gait and reflexes normal; Absent motor sensory deficit Psychiatric Psychiatric exam: Present normal affect and normal mood Skin Skin exam: Present warm, dry, intact and normal color Course Quality Measures none Orders Category Date Time Status Bedside COVID-19 Antigen Test NOW Care 05/10/25 13:25 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 Care 05/10/25 13:22 Active Continuous Pulse Oximetry ONCE Care 05/10/25 13:22 Active EKG (ED ONLY) *Do not use* NOW Care 05/10/25 13:22 Completed Insert IV STAT Care 05/10/25 13:22 Active EKG (ED Only) Stat Exams 05/10/25 13:22 Draft XR chest 2V Stat Exams 05/10/25 13:23 Completed B-Type Natriuretic Peptide Stat Lab 05/10/25 13:31 Completed Blood Culture (Lab) Stat Lab 05/10/25 13:31 Received CBC Stat Lab 05/10/25 13:31 Completed Comprehensive Metabolic Panel Stat Lab 05/10/25 13:31 Completed Lactic Acid [Lactate (Lactic Acid)] Stat Lab 05/10/25 13:31 Completed Lipase Stat Lab 05/10/25 13:31 Completed Magnesium Stat Lab 05/10/25 13:31 Completed Partial Thromboplastin Time Stat Lab 05/10/25 13:31 Completed Procalcitonin Stat Lab 05/10/25 13:31 Completed Prothrombin Time with INR Stat Lab 05/10/25 13:31 Completed Troponin I Stat Lab 05/10/25 13:31 Completed Sodium Chloride 0.9% 1000 ml [Ns] 1,000 ml Med 05/10/25 20:11 Active IV 999 mls/hr cefTRIAXone [Rocephin] 2 gm Med 05/10/25 20:12 Active SODIUM CHLORIDE 0.9% (Popper) [Ns 0.9% (P)] 50 ml IV X1 Vital Signs Vital signs: Vital Signs Temperature 99.1 F 05/10/25 13:13 Pulse Rate 118 H 05/10/25 13:13 Respiratory Rate 20 05/10/25 13:13 Blood Pressure 131/88 H 05/10/25 13:13 Pulse Oximetry (%) 95 05/10/25 13:13 Oxygen Delivery Method Room Air 05/10/25 13:13 Patient is afebrile mild tachycardic not tachypneic blood pressure is stable oxygen saturation is 95% in room are normal Weakness MDM Narrative MDM Narrative:: This is a case of 65-year-old female history of hypertension and diabetes came in in the emergency room due to generalized weakness history of present illness started 4 days prior to arrival in the emergency room when the patient had productive cough and mild shortness of breath with nasal congestion no fever no ear pain no sore throat due to persistence of the symptoms now with generalized weakness thus patient decided to start consult here in the emergency room patient also have pleuritic chest pain when coughing no palpitation physical examination patient is awake alert oriented not in distress nontoxic looking well-hydrated well-nourished HEENT exam is normal and unremarkable lungs sound noted rhonchi on right lower lung field no crackles no rales no retraction no wheezing noted abdomen soft no guarding no rebound no rigidity vital signs stable patient is not tachypneic and not hypoxic oxygen saturation is 95% not tachypneic not tachycardic and afebrile blood test showed no leukocytosis no anemia kidney and liver function is normal no electrolyte imbalance procalcitonin is negative thus patient is not having sepsis troponin is negative BNP is negative EKG showed sinus tachycardia with a ventricle rate of [address] or T wave or Q wave abnormality chest x-ray showed pneumonia at this point patient was given a bolus of normal saline and ceftriaxone 2 g for pneumonia patient condition markedly improved no distress noted patient has no signs of symptoms of sepsis dehydration or hypoxia I have a long discussion with the patient patient is COVID-positive patient will continue to monitor temperature and take Tylenol for fever and if the oxygen saturation is less than 92% he is aware to return in the emergency room immediately or call 911 she will also follow-up with PCP in 2 days for reevaluation she will continue the Augmentin I prescribed azithromycin for her at the the patient's antibiotic she was also prescribed with Paxlovid for COVID and she was given Ventolin inhaler and prom ethazine for cough patient understood very well the discharge instruction Patient was discharged with comfortable condition walking with stable gait. Patient verbalized no further complains explained diagnosis and answered patient question. Patient is comfortable with the proposed management plan including the need to follow up with his/her primary care physician and any specialist if applicable Discussed patient for any urgent condition or worsening sx, He/She needed to go to emergency room immediately or call 911. Patient acknowledge the responsibility to follow up as instructed and to monitor her/his symptoms. For any persistence of the symptoms for more than 3-5 days return precaution advised. Discussed the result of the test and was given printed discharge instruction Patient data External records reviewed:: [facility] previous records Clinical information provided by:: patient Social determinants that could affect healthcare access:: none Patient has the following chronic illnesses:: None How is presenting disease/condition affected by chronic disease/condition?: no chronic disease Evaluation data The following diagnostics were reviewed and interpreted by me:: lab results and radiology exam(s) Lab and/or radiology exams considered but not ordered:: Reviewed Interpretation Summary: Reviewed Medications / Prescriptions Medications or Prescriptions considered but not ordered:: Given Medication administrations:: Medication Administration History Sodium Chloride (Ns) 1,000 mls @ 999 mls/hr IV .Q1H1M ONE Stop: 05/10/25 21:11 Ceftriaxone Sodium 2 gm/ (Sodium Chloride) 50 mls @ 100 mls/hr IV X1 ONE Stop: 05/10/25 20:41 Given Consultations Consultation(s) initiated? (list below): No Diagnosis Weakness Differential Diagnosis: other (Pneumonia bronchitis sinusitis tonsillit is) Most likely diagnosis given after review of the tests above:: Pneumonia COVID Admission Indicated Admission indicated?: not indicated Explain why admission is indicated or not indicated:: Not indicated Admission Request Was there a request for admission?: No Admission Attestation Admission request attestation: Not indicated Disposition Plan Disposition Plan: Discharge Discharge Attestation Discharge Attestation: The patient and all family members were given an opportunity to ask questions and understood the discharge instructions. Discharge instructions specifically effects, indications for sooner follow up or return to the emergency department, and the expected course of current diagnosis. Patient condition: Stable Discharge Plan Plan Patient Disposition: HOME (Self Care) Prescriptions/Referrals Prescriptions/Med Rec: New azithromycin 250 mg tablet 250 mg PO QDAY 5 Days Qty: 5 0RF Rx Instructions: 2 tablets today then 1 tablet start tomorrow for 4 days albuterol sulfate [Ventolin HFA] 90 mcg/actuation HFA aerosol inhaler 2 puff inhalation Q4H PRN (Reason: shortness of breath or wheezing) Qty: 8.5 0RF promethazine-DM 6.25-15 mg/5 mL syrup 5 ml PO Q6H PRN (Reason: cough) Qty: 118 0RF Paxlovid 300 mg (150 mg x 2)-100 mg tablets,dose pack 3 tab PO BID 5 Days Qty: 30 0RF Rx Instructions: 3 tabs orally; No Action atorvastatin 20 mg tablet 20 mg PO QDAY Patient Comments: TOME EVY TABLETA TODOS LOS D FOR 90 DAYS losartan 100 mg tablet 100 mg PO QDAY Patient Comments: TOME EVY TABLETA TODOS LOS D FOR 90 DAYS metformin 500 mg tablet extended release 24 hr 500 mg PO HS Patient Comments: TOME EVY TABLETA POR V A ORAL TODOS 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 Rx Instructions: with dinner ibuprofen 600 mg tablet 600 mg PO TID PRN (Reason: pain) Qty: 30 0RF metoprolol succinate 25 mg Tablet Extended Release 24 Hr 25 mg PO QDAY hydroxyzine HCl 25 mg Tablet 25 mg PO HS PRN (Reason: Anxiety) loratadine 10 mg Tablet 10 mg PO QDAY amoxicillin-pot clavulanate 875-125 mg tablet 1 tab PO BID Qty: 14 0RF cyclobenzaprine 10 mg tablet 10 mg PO TID PRN (Reason: muscle spasm) Qty: 30 0RF ibuprofen 800 mg tablet 800 mg PO TID PRN (Reason: pain) Qty: 30 0RF Referrals: Sylwia Curry MD [Primary Care Provider] - In 1 week Problem List Clinical Impression: General weakness, Pneumonia, COVID Patient/Caregiver Discharge Instructions Education Materials: COVID-19 Home Care, ED Pneumonia (Adult), ED Weakness (Uncertain Cause) Additional Instructions: Follow-up with your primary care physician in 2 days for reevaluation for any worsening symptoms or any emergent concerns such as shortness of breath fever chills retraction unable to breathe call 911 or go to the nearest emergency room take your medication and finish the course of antibiotic continue the Augmentin that was prescribed with your primary care physician and start azithromycin for 5 days self quarantine per CDC protocol keep hydrated take vitamin C and zinc daily check temperature every 4-6 hours and take Tylenol as needed for fever you need also to check your oxygen saturation every 12 hours and return to the emergency room immediately if less than 92% Print Language: Telugu Stand Alone Forms: Leticia Award Info., Patient Portal Info Letter PA/DELINEATOR Supervising Physician PA/DELINEATOR Supervising Physician: dr espana
[2025-05-10 21:34] VITALS: RESP 18; O2SAT 96
== END 2025-05-10 21:35 | disposition home or self-care (01) ==
PROVIDERS: Nurse Practitioner Primary Care; Emergency Provider Emergency Medicine; PCP Obstetrics & Gynecology
DX: U07.1 COVID-19 (principal); J12.82 Pneumonia due to coronavirus disease 2019; R00.0 Tachycardia, unspecified; I44.4 Left anterior fascicular block; I10 Essential (primary) hypertension; E78.00 Pure hypercholesterolemia, unspecified
CPT/HCPCS: 36415; 71046; 80053; 83605; 83690; 83735; 83880; 84145; 84484; 85025; 85610; 85730; 87040; 87811; 93005; 96365; J0696; J7030; J7050

== ENCOUNTER 2025-06-01 10:33 | Emergency (ER) | payer MEDICARE, MEDICAID, SELFPAY ==
[2025-06-01 10:35] VITALS: BP 132/86; PULSE 107; RESP 17; TEMP 37.2; O2SAT 96
--- NOTE | 2025-06-01 10:53 | EKG_ITS ---
[facility] Test Date: 2025-06-01 Pat Name: GISSEL PERAZA Department: Room: - Gender: Female Dialysis Nurse: : 1960 Requested By: Jayy Marcelino Order Number: [id number] Reading MD: Jayy Marcelino Measurements Intervals [place] Rate: 88 P: 37 MS: 151 QRS: -57 QRSD: 78 T: 30 QT: 336 QTc: 407 Interpretive Statements SINUS RHYTHM PATTERN CONSISTENT WITH PULMONARY DISEASE LEFT ANTERIOR FASCICULAR BLOCK [QRS AXIS <= -45, QR IN I, RS IN II] Compared to ECG 05/10/2025 14:04:15 Sinus tachycardia no longer present Myocardial infarct finding no longer present /[id number]/[id number]
[2025-06-01 10:55] VITALS: BMI 28.1
[2025-06-01 11:05] VITALS: PULSE 92
--- NOTE | 2025-06-01 11:22 | PD.EDARRY ---
ED Arrhythmia Palp. RME/HPI General Chief Complaint: Arrhythmia/Palpitations Stated Complaint: TACHYCARDIA Time Seen by Provider: 06/01/25 11:16 Arrival date/time: 06/01/25 10:33 Limitations: no limitations RME / HPI RME / HPI narrative: 65 year old female with history of hypertension and diabetes presents to the ED for evaluation of elevated heart rate today. Reports the elevated heart rate lasting ~ 20 minutes and accompanied by feeling anxious this morning. No other associated symptoms reported. Denies fevers, chills, sweats, cough, abdominal pain, n/v/d, or urinary symptoms. Related Data Home Medications ?Medication ?Instructions ?Recorded ?Confirmed atorvastatin 20 mg tablet 20 mg PO QDAY 04/04/22 01/01/24 losartan 100 mg tablet 100 mg PO QDAY 04/04/22 01/01/24 metformin 500 mg tablet,extended 500 mg PO HS 04/04/22 01/01/24 release 24 hr metoprolol succinate 25 mg 25 mg PO QDAY 08/28/23 01/01/24 tablet,extended release 24 hr hydroxyzine HCl 25 mg tablet 25 mg PO HS PRN Anxiety 01/01/24 01/01/24 loratadine 10 mg tablet 10 mg PO QDAY 01/01/24 01/01/24 Previous Rx's ?Medication ?Instructions ?Recorded ibuprofen 600 mg tablet 600 mg PO TID PRN pain #30 tabs 07/31/22 cyclobenzaprine 10 mg tablet 10 mg PO TID PRN muscle spasm #30 04/14/24 tabs ibuprofen 800 mg tablet 800 mg PO TID PRN pain #30 tabs 04/14/24 amoxicillin 875 mg-potassium 1 tab PO BID #14 tabs 10/01/24 clavulanate 125 mg tablet albuterol sulfate 90 mcg/actuation 2 puff inhalation Q4H PRN 05/10/25 aerosol inhaler (Ventolin HFA) shortness of breath or wheezing #8.5 grams promethazine-DM 6.25 mg-15 mg/5 mL 5 ml PO Q6H PRN cough #118 mL 05/10/25 oral syrup Allergies Allergy/AdvReac Type Severity Reaction Status Date / Time No Known Allergies Allergy Verified 05/10/25 12:46 Review of Systems Review of Systems Systems Reviewed: All systems reviewed, normal except as documented Past Medical History Past Medical History CARDIAC: Positive Cardiac Disorders, Hypercholesterolemia and Hypertension RESPIRATORY: Positive Asthma, Bronchitis and Pneumonia GASTROINTESTINAL: Positive Gastrointestinal Disorders and Obesity REPRODUCTIVE: Positive Endometriosis and Previous Pregnancies MUSCULOSKELETAL: Positive Musculoskeletal Disorders and Arthritis ENT: Positive Cataracts and Ear Infection ENDOCRINE: Positive Endocrine Disorders and Diabetes Mellitus Type 2 PSYCHO/SOCIAL: Positive Anxiety OTHER HISTORY: Positive Shingles Family History FAMILY HISTORY: Positive Family Cardiac Disorders Surgical History SURGICAL: Positive Eye Surgery Social History SMOKING STATUS: Never smoker SUBSTANCE USE: does not use ED Exam General Limitations: Present no limitations General appearance: Present alert and in no apparent distress Head Head exam: Present atraumatic, normocephalic and normal inspection Eye Eye exam: Present normal appearance, PERRL and EOMI ENT ENT exam: Present normal exam, normal oropharynx and mucous membranes moist Neck Neck exam: Present normal inspection, full ROM and trachea midline Chest Chest inspection: Present normal inspection and symmetric chest wall rise Respiratory Respiratory exam: Present normal lung sounds bilaterally Cardiovascular Cardiovascular exam: Present regular rate, normal rhythm and normal heart sounds Abdominal Exam Abdominal exam: Present soft and normal bowel sounds Extremities Exam Extremities exam: Present normal inspection and full ROM Back Exam Back exam: Present normal inspection and full ROM Neurological Exam Neurological exam: Present alert, oriented X3 and CN II-XII intact Psychiatric Psychiatric exam: Present normal affect and normal mood Skin Skin exam: Present warm, dry, intact and normal color Course Quality Measures none Orders Category Date Time Status EKG (ED ONLY) *Do not use* NOW Care 06/01/25 10:53 Completed EKG (ED Only) Stat Exams 06/01/25 10:53 Draft Reevaluation(s) Reevaluation #1: Patient remains clinically stable throughout the emergency department visit. We reviewed all the results, analysis, and treatment plans. Patient is amenable to discharge. Strict return precautions were outlined. Patient was discharged in stable condition. Time: 14:04 Vital Signs Vital signs: Vital Signs Temperature 98.9 F 06/01/25 10:35 Pulse Rate 107 H 06/01/25 10:35 Respiratory Rate 17 06/01/25 10:35 Blood Pressure 132/86 H 06/01/25 10:35 Pulse Oximetry (%) 96 06/01/25 10:35 Arrhythmia/Palpitations MDM Narrative MDM Narrative:: Suzanne Villalta am scribing for and in the presence of Dr. Erickson. Patient data External records reviewed:: [facility] previous records (I reviewed ED visit on 05/10/2025 for covid. ) Clinical information provided by:: patient Social determinants that could affect healthcare access:: none Patient has the following chronic illnesses:: Hypertension, diabetes How is presenting disease/condition affected by chronic disease/condition?: exacerbated by Evaluation data The following diagnostics were reviewed and interpreted by me:: lab results, radiology exam(s) and EKG tracing(s) (06/01/2025 @ 10:56 AM. Sinus rhythm, rate 88, left anterior fascicular block, no STEMI. ) Lab and/or radiology exams considered but not ordered:: None Interpretation Summary: Ordering Physician: Jayy Erickson MD Date of Service: 06/01/25 Procedure(s): XR chest 1V portable Accession Number(s): [id number] cc: Jayy Erickson MD; Cullen Burleson MD~ Examination: AP chest single view TECHNIQUE: AP portable upright chest single view Date and time: June 01, 2025 1142 hours INDICATIONS: Coughing 3 days. FINDINGS: Mild prominence left ventricle. No pneumonia or pulmonary edema The osseous structures are intact IMPRESSION: No pneumonia or pulmonary edema Dictated By: Cullen Burleson MD Signed By: <Electronically signed by Cullen Burleson MD in OV> 06/01/25 1152 Medications / Prescriptions Medications or Prescriptions considered but not ordered:: None Medication administrations:: None Consultations Consultation(s) initiated? (list below): No Diagnosis Differential diagnosis arrhythmia/palpitations: palpitations, anxiety, sinus tachycardia and ventricular premature beats Most likely diagnosis given after review of the tests above:: Palpitations Admission Indicated Admission indicated?: not indicated Admission Request Was there a request for admission?: No Disposition Plan Disposition Plan: Discharge Discharge Attestation Discharge Attestation: The patient and all family members were given an opportunity to ask questions and understood the discharge instructions. Discharge instructions specifically effects, indications for sooner follow up or return to the emergency department, and the expected course of current diagnosis. Patient condition: Stable Discharge Plan Plan Patient Disposition: HOME (Self Care) Prescriptions/Referrals Prescriptions/Med Rec: No Action atorvastatin 20 mg tablet 20 mg PO QDAY Patient Comments: RICARDO Steven FOR 90 DAYS losartan 100 mg tablet 100 mg PO QDAY Patient Comments: TOME EVY TABLETA TODOS LOS D FOR 90 DAYS metformin 500 mg tablet extended release 24 hr 500 mg PO HS Patient Comments: TOME EVY TABLETA POR V A ORAL TODOS LOS D CON LA NATHALY Rx Instructions: with dinner ibuprofen 600 mg tablet 600 mg PO TID PRN (Reason: pain) Qty: 30 0RF metoprolol succinate 25 mg Tablet Extended Release 24 Hr 25 mg PO QDAY hydroxyzine HCl 25 mg Tablet 25 mg PO HS PRN (Reason: Anxiety) loratadine 10 mg Tablet 10 mg PO QDAY amoxicillin-pot clavulanate 875-125 mg tablet 1 tab PO BID Qty: 14 0RF albuterol sulfate [Ventolin HFA] 90 mcg/actuation HFA aerosol inhaler 2 puff inhalation Q4H PRN (Reason: shortness of breath or wheezing) Qty: 8.5 0RF promethazine-DM 6.25-15 mg/5 mL syrup 5 ml PO Q6H PRN (Reason: cough) Qty: 118 0RF cyclobenzaprine 10 mg tablet 10 mg PO TID PRN (Reason: muscle spasm) Qty: 30 0RF ibuprofen 800 mg tablet 800 mg PO TID PRN (Reason: pain) Qty: 30 0RF Referrals: Sylwia Curry FNP-C [Primary Care Provider] - In 1 week Problem List Clinical Impression: Palpitations Patient/Caregiver Discharge Instructions Education Materials: ED Palpitations Additional Instructions: Follow-up with your primary care doctor in 1-2 days for recheck. You can return to the emergency department sooner if symptoms worsen or if you notice any new, concerning issues. Print Language: Faroese Stand Alone Forms: Leticia Award Info., Patient Portal Info Letter
--- NOTE | 2025-06-01 11:38 | XR_ITS ---
Examination: AP chest single view TECHNIQUE: AP portable upright chest single view Date and time: June 01, 2025 1142 hours INDICATIONS: Coughing 3 days. FINDINGS: Mild prominence left ventricle. No pneumonia or pulmonary edema The osseous structures are intact IMPRESSION: No pneumonia or pulmonary edema
[2025-06-01 12:11] VITALS: BP 114/78; PULSE 79; RESP 20; TEMP 36.7; O2SAT 94
[2025-06-01 12:40] LABS: Basophils # (Auto) 0.1 Thou/mm3 (0.0-0.2); Basophils % (Auto) 1 % (0-2.5); Eosinophils # (Auto) 0.1 Thou/mm3 (0.0-0.5); Eosinophils % (Auto) 1 % (0-10); Hematocrit 42.2 % (36.0-46.0); Hemoglobin 13.8 g/dL (12.0-16.0); Immature Granulocytes Auto 0.03 Thou/mm3 (0.00-0.00); Lymphocytes # (Auto) 4.0 Thou/mm3 (1.0-4.8); Lymphocytes % (Auto) 36 % (10-50); Mean Corpuscular HGB Conc 32.7 g/dl (31.0-37.0); Mean Corpuscular Hemoglobin 29.7 pg (25.0-35.0); Mean Corpuscular Volume 91 fL (80-100); Monocytes # (Auto) 0.7 Thou/mm3 (0.0-0.8); Monocytes % (Auto) 6 % (0-12); Neutrophils # (Auto) 6.3 Thou/mm3 (1.8-7.7); Neutrophils % (Auto) 57 % (37-80); Nucleated Red Blood Cell # 0.00 Thou/mm3 (0.00-0.00); Nucleated Red Blood Cell % 0 /100 WBC (0); Platelet Count 227 Thou/mm3 (140-440); RDW Standard Deviation 45.7 fL (36.4-46.3); Red Blood Count 4.65 Miln/mm3 (4.00-5.20); White Blood Count 11.1 Thou/mm3 (3.6-11.0)
[2025-06-01 12:55] LABS: INR 1.0 (0.9-1.3); Prothrombin Time 11.3 Seconds (9.0-12.2)
[2025-06-01 12:59] LABS: Alanine Aminotransferase 31 U/L (10-49); Albumin, Serum 4.7 gm/dL (3.4-4.8); Albumin/Globulin Ratio 1.6 (1.2-2.2); Alkaline Phosphatase 93 U/L (46-116); Anion Gap 7 (7-16); Aspartate Amino Transferase 31 U/L (0-34); BUN/Creatinine Ratio 14 Ratio (12-20); Bilirubin,Total 0.5 mg/dL (0.3-1.2); Blood Urea Nitrogen 14 mg/dL (9-23); Calcium 9.8 mg/dL (8.3-10.6); Calcium (Corrected) 9.8 mg/dL (8.5-10.1); Carbon Dioxide 26.3 mMol/L (20.0-31.0); Chloride 109 mMol/L (98-107); Creatinine (Component) 1.0 mg/dL (0.6-1.3); Estimated Creatinine Clearance 54.7 mL/min (>60); Globulin 3.0 gm/dL (2.3-3.5); Glucose 122 mg/dL (74-106); Osmolality,Calculated 284 (275-295); Potassium 4.3 mMol/L (3.4-5.1); Sodium 142 mMol/L (136-145); Total Protein 7.7 gm/dL (5.7-8.2); Troponin I < 0.002 ng/mL (0.0-0.045); eGFR > 60 See Note
[2025-06-01 14:03] VITALS: BP 104/83; PULSE 77; RESP 18; TEMP 36.9; O2SAT 96
== END 2025-06-01 14:55 | disposition home or self-care (01) ==
PROVIDERS: Emergency Provider Family Medicine; PCP Nurse Practitioner Family
DX: R00.2 Palpitations (principal); R00.0 Tachycardia, unspecified; R05.9 Cough, unspecified; I10 Essential (primary) hypertension; E78.00 Pure hypercholesterolemia, unspecified
CPT/HCPCS: 36415; 71045; 80053; 84484; 85025; 85610; 93005; 99283

== ENCOUNTER 2025-06-08 12:34 | Emergency (ER) | payer MEDICARE, MEDICAID, SELFPAY ==
[2025-06-08 12:43] VITALS: BP 136/89; PULSE 88; RESP 18; TEMP 36.6; O2SAT 98; BMI 28.7
--- NOTE | 2025-06-08 12:50 | XR_ITS ---
Examination: PA chest single view TECHNIQUE: Upright PA chest single view Date and time: June 08, 2025 1313 hours INDICATION: Chest pain coughing 2 weeks. FINDINGS: Normal heart size No lobar pneumonia. Minor subsegmental atelectasis at the right base. No pulmonary edema. Moderate osteopenia IMPRESSION: No pneumonia or pulmonary edema
--- NOTE | 2025-06-08 12:56 | EDNOTE_ITS ---
<Statement entered by Carline Pitts MD - 06/09/25 15:26> As co-signing physician, I was present and available for consult prn. I concur with the plan and care as documented by the midlevel provider. ED Dental RME/HPI General Chief complaint: Dental/Oral/Throat Stated complaint: Throat pain, ear pain X 2 weeks Time Seen by Provider: 06/08/25 12:39 Arrival date/time: 06/08/25 12:34 RME / HPI RME / HPI Narrative: 65-year-old female patient came in for evaluation regarding cough. Patient has been having chronic cough for more than 2 weeks, sore throat, earache, severity mild. Patient was diagnosed with COVID-19 about a month ago. Patient denies any fever denies any chest pain and coughing denies any other complaints patient is worried she is still having COVID. Related Data Home Medications ?Medication ?Instructions ?Recorded ?Confirmed atorvastatin 20 mg tablet 20 mg PO QDAY 04/04/2212/31 losartan 100 mg tablet 100 mg PO QDAY 04/04/2211/25 metformin 500 mg tablet,extended 500 mg PO HS 04/04/22 01/01/24 release 24 hr metoprolol succinate 25 mg 25 mg PO QDAY 08/28/2311/25 tablet,extended release 24 hr hydroxyzine HCl 25 mg tablet 25 mg PO HS PRN Anxiety 0 01/01/24 01/01/24 loratadine 10 mg tablet 10 mg PO QDAY 01/01/2412/31 Previous Rx's ?Medication ?Instructions ?Recorded ibuprofen 600 mg tablet 600 mg PO TID PRN pain #30 t abs 07/31/22 cyclobenzaprine 10 mg tablet 10 mg PO TID PRN muscle s pasm #30 04/14/24 tabs ibuprofen 800 mg tablet 800 mg PO TID PRN pain #30 t abs 04/14/24 amoxicillin 875 mg-potassium 1 tab PO BID #14 tabs clavulanate 125 mg tablet albuterol sulfate 90 mcg/actuation 2 puff inhalation Q 4H PRN 05/10/25 aerosol inhaler (Ventolin HFA) shortness of breath or wheezing #8.5 grams promethazine-DM 6.25 mg-15 mg/5 mL 5 ml PO Q6H PRN cou gh #118 mL 05/10/25 oral syrup benzonatate 200 mg capsule 200 mg PO BID PRN cough #30 caps 06/08/25 meclizine 50 mg tablet 50 mg PO BID PRN dizziness # 20 tabs 06/08/25 Allergies Allergy/AdvReac Type Severity Reaction Status Date / Time No Known Allergies Allergy Verified 06/08/25 12:39 Review of Systems Review of Systems Narrative Review of Systems: Review of system reviewed and within normal limits except mentioned in HPI ED Exam Narrative Physical exam: VITAL SIGNS: Reviewed. GENERAL APPEARANCE: Alert and interactive, follows commands, no acute distress, HEAD AND FACE: Non-traumatic. ENT: PERRL, pink conjunctivitis, eyelid no trauma, Mucous membrane moist. NECK: Supple, nontender, no nuchal rigidity. CHEST: No tenderness, no crepitus, no paradoxical movement, no retractions. LUNGS: Clear, well ventilated, symmetric, no rales, no wheezing, no ronchi, no stridor, good breath sounds bilaterally. HEART: Regular rate, regular rhythm, no murmur, no gallops. ABDOMEN: Soft, positive bowel sounds, nondistended, no guarding, nontender, no rebound, no masses, RECTAL: Deferred. GENITAL: Deferred. NEUROLOGICAL: Gross motor function intact sensory function intact, Appropriate for age. MUSCULOSKELETAL: low back nontender, full range of motion. EXTREMITIES: Nontender, full range of motion. SKIN: Color pink, dry, no rash, no lacerations, no abrasions, no contusions. LYMPHATICS: Deferred. Course Quality Measures none Orders Category Date Time Status Bedside COVID-19 Antigen Test NOW Care 06/08/25 12:52 Completed XR chest 1V Stat Exams 06/08/25 12:50 Completed Benzonatate [Tessalon] Med 06/08/25 15:02 Discontinued 200 mg PO X1 ONE Meclizine HCl [Antivert] Med 06/08/25 15:02 Discontinued 25 mg PO X1 ONE Vital Signs Vital signs: Vital Signs Temperature 97.9 F 06/08/25 12:43 Pulse Rate 88 06/08/25 12:43 Respiratory Rate 18 06/08/25 12:43 Blood Pressure 136/89 H 06/08/25 12:43 Pulse Oximetry (%) 98 06/08/25 12:43 Oxygen Delivery Method Room Air 06/08/25 12:43 Dental / Oral MDM Narrative MDM Narrative:: 65-year-old female patient came in for evaluation regarding cough. Patient has been having chronic cough for more than 2 weeks, sore throat, earache, severity mild. Patient was diagnosed with COVID-19 about a month ago. Patient denies any fever denies any chest pain and coughing denies any other complaints patient is worried she is still having COVID. Patient is stating to be COVID. Chest x-ray came back unremarkable also. Patient data External records reviewed:: None Clinical information provided by:: patient Social determinants that could affect healthcare access:: none Patient has the following chronic illnesses:: None How is presenting disease/condition affected by chronic disease/condition?: no chronic disease Evaluation data The following diagnostics were reviewed and interpreted by me:: lab results and radiology exam(s) Lab and/or radiology exams considered but not ordered:: None Interpretation Summary: Distal negative for COVID-19 Medications / Prescriptions Medications or Prescriptions considered but not ordered:: None Medication administrations:: Medication Administration History Discontinued Medications Benzonatate (Benzonatate 100 Mg Capsule) 200 mg PO X1 ONE; Protocol Stop: 06/08/25 15:03 Last Admin: 06/08/25 15:35 Dose: 200 mg Documented By: CONSUELO Meclizine HCl (Meclizine Hcl 25 Mg Tablet) 25 mg PO X1 ONE Stop: 06/08/25 15:03 Last Admin: 06/08/25 15:08 Dose: 25 mg Documented By: IJEOMA Bliss and meclizine Consultations Consultation(s) initiated? (list below): No Diagnosis Dental Differential Diagnosis: other (Cough, COVID, pneumonia) Most likely diagnosis given after review of the tests above:: Chronic cough Admission Indicated Admission indicated?: not indicated Admission Request Was there a request for admission?: No Disposition Plan Disposition Plan: Discharge Discharge Attestation Discharge Attestation: The patient and all family members were given an opportunity to ask questions and understood the discharge instructions. Discharge instructions specifically effects, indications for sooner follow up or return to the emergency department, and the expected course of current diagnosis. Patient condition: Stable Discharge Plan Plan Patient Disposition: HOME (Self Care) Discharge Disposition comment: stable Prescriptions/Referrals Prescriptions/Med Rec: New meclizine 50 mg tablet 50 mg PO BID PRN (Reason: dizziness) Qty: 20 0RF benzonatate 200 mg capsule 200 mg PO BID PRN (Reason: cough) Qty: 30 0RF No Action atorvastatin 20 mg tablet 20 mg PO QDAY Patient Comments: TOME EVY TABLETA TODOS LOS D FOR 90 DAYS losartan 100 mg tablet 100 mg PO QDAY Patient Comments: TOME EVY TABLETA TODOS LOS D FOR 90 DAYS metformin 500 mg tablet extended release 24 hr 500 mg PO HS Patient Comments: TOME EVY TABLETA POR V A ORAL TODOS LOS D CON LA NATHALY Rx Instructions: with dinner ibuprofen 600 mg tablet 600 mg PO TID PRN (Reason: pain) Qty: 30 0RF metoprolol succinate 25 mg Tablet Extended Release 24 Hr 25 mg PO QDAY hydroxyzine HCl 25 mg Tablet 25 mg PO HS PRN (Reason: Anxiety) loratadine 10 mg Tablet 10 mg PO QDAY amoxicillin-pot clavulanate 875-125 mg tablet 1 tab PO BID Qty: 14 0RF albuterol sulfate [Ventolin HFA] 90 mcg/actuation HFA aerosol inhaler 2 puff inhalation Q4H PRN (Reason: shortness of breath or wheezing) Qty: 8.5 0RF promethazine-DM 6.25-15 mg/5 mL syrup 5 ml PO Q6H PRN (Reason: cough) Qty: 118 0RF cyclobenzaprine 10 mg tablet 10 mg PO TID PRN (Reason: muscle spasm) Qty: 30 0RF ibuprofen 800 mg tablet 800 mg PO TID PRN (Reason: pain) Qty: 30 0RF Referrals: Sylwia Curry MD [Primary Care Provider] - In 1 week Problem List Clinical Impression: Cough, Dizziness Patient/Caregiver Discharge Instructions Discharge Activity: activity as tolerated Education Materials: ED Dizziness, Uncertain Cause Additional Instructions: Thank you for the opportunity for serving you today. You are stable for discharged . You are advised to: Follow-up with your PCP in 1 to 2 days Return to ED for worsening of symptoms Increase oral fluids Take medication as prescribed Print Language: Anguillan Stand Alone Forms: Leticia Award Info., Patient Portal Info Letter PA/DILCIA Supervising Physician PA/DILCIA Supervising Physician: MD Hong
[2025-06-08 14:48] VITALS: BP 136/84; PULSE 72; RESP 18; TEMP 36.6; O2SAT 96
[2025-06-08] MEDS: MECLIZINE HCL 25 MG TABLET PO (15:08)
--- NOTE | 2025-06-08 15:10 | PC.NURSE ---
called pharmacy for pt.'s med.
[2025-06-08] MEDS: BENZONATATE 100 MG CAPSULE 200 MG PO (15:35)
[2025-06-08 15:40] VITALS: BP 116/76; PULSE 89; RESP 16; TEMP 36.6; O2SAT 99
== END 2025-06-08 15:40 | disposition home or self-care (01) ==
PROVIDERS: Emergency Provider Emergency Medicine; PCP Obstetrics & Gynecology
DX: R42 Dizziness and giddiness (principal); R05.9 Cough, unspecified; R07.9 Chest pain, unspecified; R07.0 Pain in throat; H92.09 Otalgia, unspecified ear; Z86.16 Personal history of COVID-19
CPT/HCPCS: 71045; 87811; 99283; A9270

== ENCOUNTER 2025-07-10 11:46 | Emergency (ER) | payer MEDICARE, MEDICAID, SELFPAY ==
[2025-07-10 12:01] VITALS: BP 157/98; PULSE 122; RESP 19; TEMP 36.9; O2SAT 96; BMI 26.2
--- NOTE | 2025-07-10 12:07 | EKG_ITS ---
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
--- NOTE | 2025-07-10 12:07 | XR_ITS ---
Examination: PA lateral chest 2 views TECHNIQUE: Upright PA lateral chest 2 views Date and time: July 10, 2025 12:10 PM, comparison June 08, 2025 INDICATIONS: Shortness of breath chest pain coughing fever beginning 2 months ago. FINDINGS: Opacity in the lingular segment obscuring detail left cardiac contour Right lung clear Normal heart size IMPRESSION: Pneumonia in the lingular segment left upper lobe
--- NOTE | 2025-07-10 12:07 | PD.EDRME ---
Rapid Medical Screening Exam RME Arrival date/time: 07/10/25 11:46 65-year-old female with a history of hyperlipidemia, type 2 diabetes presents to the emergency room with a chief complaint of coughing up phlegm, palpitations, and tingling in her neck x 3 days I have greeted and performed a focused initial assessment of this patient. A comprehensive ED assessment and evaluation of the patient, analysis of all test results, and completion of the medical decision making process will be conducted by additional ED providers. Chief Complaint: General Adult/Misc Complain Vital signs: Vital Signs Temperature 98.4 F 07/10/25 12:01 Pulse Rate 122 H 07/10/25 12:01 Respiratory Rate 19 07/10/25 12:01 Blood Pressure 157/98 H 07/10/25 12:01 Pulse Oximetry (%) 96 07/10/25 12:01 Oxygen Delivery Method Room Air 07/10/25 12:01 Vital signs reviewed by provider: Yes
[2025-07-10 12:48] LABS: Basophils # (Auto) 0.1 Thou/mm3 (0.0-0.2); Basophils % (Auto) 1 % (0-2.5); Eosinophils # (Auto) 0.0 Thou/mm3 (0.0-0.5); Eosinophils % (Auto) 0 % (0-10); Hematocrit 40.4 % (36.0-46.0); Hemoglobin 13.0 g/dL (12.0-16.0); Immature Granulocytes Auto 0.03 Thou/mm3 (0.00-0.00); Lymphocytes # (Auto) 3.5 Thou/mm3 (1.0-4.8); Lymphocytes % (Auto) 35 % (10-50); Mean Corpuscular HGB Conc 32.2 g/dl (31.0-37.0); Mean Corpuscular Hemoglobin 29.3 pg (25.0-35.0); Mean Corpuscular Volume 91 fL (80-100); Monocytes # (Auto) 0.5 Thou/mm3 (0.0-0.8); Monocytes % (Auto) 5 % (0-12); Neutrophils # (Auto) 5.9 Thou/mm3 (1.8-7.7); Neutrophils % (Auto) 59 % (37-80); Nucleated Red Blood Cell # 0.00 Thou/mm3 (0.00-0.00); Nucleated Red Blood Cell % 0 /100 WBC (0); Platelet Count 259 Thou/mm3 (140-440); RDW Standard Deviation 46.8 fL (36.4-46.3); Red Blood Count 4.43 Miln/mm3 (4.00-5.20); White Blood Count 10.1 Thou/mm3 (3.6-11.0)
[2025-07-10 13:05] LABS: INR 1.0 (0.9-1.3); Partial Thromboplastin Time 25.8 Seconds (22.0-36.0); Prothrombin Time 11.1 Seconds (9.0-12.2)
[2025-07-10 13:06] LABS: B-Type Natriuretic Peptide < 20 pg/mL (0-100)
[2025-07-10 13:11] LABS: Alanine Aminotransferase 30 U/L (10-49); Albumin, Serum 4.8 gm/dL (3.4-4.8); Albumin/Globulin Ratio 1.6 (1.2-2.2); Alkaline Phosphatase 94 U/L (46-116); Anion Gap 14 (7-16); Aspartate Amino Transferase 30 U/L (0-34); BUN/Creatinine Ratio 12 Ratio (12-20); Bilirubin,Total 0.5 mg/dL (0.3-1.2); Blood Urea Nitrogen 11 mg/dL (9-23); Calcium 10.2 mg/dL (8.3-10.6); Calcium (Corrected) 10.2 mg/dL (8.5-10.1); Carbon Dioxide 22.7 mMol/L (20.0-31.0); Chloride 106 mMol/L (98-107); Creatinine (Component) 0.9 mg/dL (0.6-1.3); Estimated Creatinine Clearance 61.0 mL/min (>60); Free T4 (Free Thyroxine) 1.24 ng/dL (0.89-1.76); Globulin 3.0 gm/dL (2.3-3.5); Glucose 126 mg/dL (74-106); Magnesium 2.0 mg/dL (1.6-2.6); Osmolality,Calculated 286 (275-295); Potassium 4.0 mMol/L (3.4-5.1); Sodium 143 mMol/L (136-145); Thyroid Stimulating Hormone 1.68 uIU/mL (0.55-4.78); Total Protein 7.8 gm/dL (5.7-8.2); Troponin I < 0.002 ng/mL (0.0-0.045); eGFR > 60 See Note
[2025-07-10 13:17] LABS: Bilirubin,Urine Negative (Negative); Blood,Urine 1+ (Negative); Clarity,Urine Clear (Clear/Hazy); Collection Type, Urine Clean Catch; Color,Urine Colorless (Lt Yel-Yel); Culture Indicated,Urine Not Indicated; Glucose, Urine Negative (Negative); Ketones,Urine Negative (Negative); Nitrite,Urine Negative (Negative); PH,Urine 7.0 (5.0-7.0); Protein,Urine Negative (Neg - Trace); RBC,Urine < 1 /hpf (0-3); Specific Gravity,Urine 1.005 (1.001-1.035); Squamous Epithelial Cell,Urine 0 /hpf (0-5); Urobilinogen,Urine Negative mg/dL (0.0-1.0); WBC,Urine 1 /hpf (0-5)
[2025-07-10 13:28] LABS: Leukocyte Esterase,Urine Trace (Negative)
[2025-07-10 14:10] VITALS: BP 160/106; PULSE 109; RESP 18; TEMP 36.7; O2SAT 97
--- NOTE | 2025-07-10 14:42 | EDNOTE_ITS ---
ED General RME/HPI General Chief complaint: General Adult/Misc Complain Stated complaint: PRODUCING A LOT OF PHLEGM Time Seen by Provider: 07/10/25 12:09 Arrival date/time: 07/10/25 11:46 RME / HPI RME / HPI narrative: 07/10/25 11:46 65-year-old female with a history of hyperlipidemia, type 2 diabetes presents to the emergency room with a chief complaint of coughing up phlegm, palpitations, and tingling in her neck x 3 days I have greeted and performed a focused initial assessment of this patient. A comprehensive ED assessment and evaluation of the patient, analysis of all test results, and completion of the medical decision making process will be conducted by additional ED providers. DR. JIMENEZ MAIN ED EVALUATION 65 year old female with history of hypertension, diabetes, and hyperlipidemia presents to the ED for multiple complaints. Reports for several days she has been producing a lot of phlegm that is clear in color, has a dry mouth, feels feverish, sores to her tongue, and a fullness sensation to the right side of her neck. Additionally reports this morning her blood pressure was high at home and has felt anxious since. Denies any known modifying factors at home. Denies chest pain, cough, shortness of breath, abdominal pain, n/v/d, or urinary symptoms. Related Data Home Medications ?Medication ?Instructions ?Recorded ?Confirmed atorvastatin 20 mg tablet 20 mg PO QDAY 04/04/2212/31 losartan 100 mg tablet 100 mg PO QDAY 04/04/2211/25 metformin 500 mg tablet,extended 500 mg PO HS 04/04/22 01/01/24 release 24 hr metoprolol succinate 25 mg 25 mg PO QDAY 08/28/2311/25 tablet,extended release 24 hr hydroxyzine HCl 25 mg tablet 25 mg PO HS PRN Anxiety 0 01/01/24 01/01/24 loratadine 10 mg tablet 10 mg PO QDAY 01/01/2412/31 Previous Rx's ?Medication ?Instructions ?Recorded ibuprofen 600 mg tablet 600 mg PO TID PRN pain #30 t abs 07/31/22 cyclobenzaprine 10 mg tablet 10 mg PO TID PRN muscle s pasm #30 04/14/24 tabs ibuprofen 800 mg tablet 800 mg PO TID PRN pain #30 t abs 04/14/24 amoxicillin 875 mg-potassium 1 tab PO BID #14 tabs clavulanate 125 mg tablet albuterol sulfate 90 mcg/actuation 2 puff inhalation Q 4H PRN 05/10/25 aerosol inhaler (Ventolin HFA) shortness of breath or wheezing #8.5 grams promethazine-DM 6.25 mg-15 mg/5 mL 5 ml PO Q6H PRN cou gh #118 mL 05/10/25 oral syrup benzonatate 200 mg capsule 200 mg PO BID PRN cough #30 caps 06/08/25 meclizine 50 mg tablet 50 mg PO BID PRN dizziness # 20 tabs 06/08/25 Allergies Allergy/AdvReac Type Severity Reaction Status Date / Time No Known Allergies Allergy Verified 07/10/25 11:53 Review of Systems Review of Systems Systems Reviewed: All systems reviewed, normal except as documented Past Medical History Past Medical History CARDIAC: Positive Cardiac Disorders, Hypercholesterolemia and Hypertension RESPIRATORY: Positive Asthma, Bronchitis and Pneumonia GASTROINTESTINAL: Positive Gastrointestinal Disorders and Obesity REPRODUCTIVE: Positive Endometriosis and Previous Pregnancies MUSCULOSKELETAL: Positive Musculoskeletal Disorders and Arthritis ENT: Positive Cataracts and Ear Infection ENDOCRINE: Positive Endocrine Disorders and Diabetes Mellitus Type 2 PSYCHO/SOCIAL: Positive Anxiety OTHER HISTORY: Positive Shingles Family History FAMILY HISTORY: Positive Family Cardiac Disorders Surgical History SURGICAL: Positive Eye Surgery Social History SMOKING STATUS: Never smoker SUBSTANCE USE: does not use ED Exam Narrative Physical exam: See MDM Course Quality Measures none Orders Category Date Time Status EKG (ED ONLY) *Do not use* NOW Care 07/10/25 12:07 Completed EKG (ED Only) Stat Exams 07/10/25 12:07 Draft XR chest 2V Stat Exams 07/10/25 12:07 Completed B-Type Natriuretic Peptide Stat Lab 07/10/25 12:23 Completed CBC Stat Lab 07/10/25 12:23 Completed Comprehensive Metabolic Panel Stat Lab 07/10/25 12:23 Completed Free T4 (Free Thyroxine) Stat Lab 07/10/25 12:23 Completed Magnesium Stat Lab 07/10/25 12:23 Completed Partial Thromboplastin Time Stat Lab 07/10/25 12:23 Completed Prothrombin Time with INR Stat Lab 07/10/25 12:23 Completed TSH [Thyroid Stimulating Hormone] Stat Lab 07/10/25 12:23 Completed Troponin I Stat Lab 07/10/25 12:23 Completed Urinalysis, C/S if Indicated Stat Lab 07/10/25 12:40 Completed Vital Signs Vital signs: Vital Signs Temperature 98.4 F 07/10/25 12:01 Pulse Rate 122 H 07/10/25 12:01 Respiratory Rate 19 07/10/25 12:01 Blood Pressure 157/98 H 07/10/25 12:01 Pulse Oximetry (%) 96 07/10/25 12:01 Oxygen Delivery Method Room Air 07/10/25 12:01 Pulse ox is 96% on room air which is adequate. Discharge Plan Plan Patient Disposition: HOME (Self Care) Discharge Disposition comment: Stable for discharge home Patient condition on transfer: Stable Prescriptions/Referrals Prescriptions/Med Rec: No Action atorvastatin 20 mg tablet 20 mg PO QDAY Patient Comments: TOME EVY TABLETA TODOS LOS D FOR 90 DAYS losartan 100 mg tablet 100 mg PO QDAY Patient Comments: TOME EVY TABLETA TODOS LOS D FOR 90 DAYS metformin 500 mg tablet extended release 24 hr 500 mg PO HS Patient Comments: TOME EVY TABLETA POR V A ORAL TODOS LOS D CON LA GENERAL AGENT Rx Instructions: with dinner ibuprofen 600 mg tablet 600 mg PO TID PRN (Reason: pain) Qty: 30 0RF metoprolol succinate 25 mg Tablet Extended Release 24 Hr 25 mg PO QDAY hydroxyzine HCl 25 mg Tablet 25 mg PO HS PRN (Reason: Anxiety) loratadine 10 mg Tablet 10 mg PO QDAY amoxicillin-pot clavulanate 875-125 mg tablet 1 tab PO BID Qty: 14 0RF albuterol sulfate [Ventolin HFA] 90 mcg/actuation HFA aerosol inhaler 2 puff inhalation Q4H PRN (Reason: shortness of breath or wheezing) Qty: 8.5 0RF promethazine-DM 6.25-15 mg/5 mL syrup 5 ml PO Q6H PRN (Reason: cough) Qty: 118 0RF meclizine 50 mg tablet 50 mg PO BID PRN (Reason: dizziness) Qty: 20 0RF benzonatate 200 mg capsule 200 mg PO BID PRN (Reason: cough) Qty: 30 0RF cyclobenzaprine 10 mg tablet 10 mg PO TID PRN (Reason: muscle spasm) Qty: 30 0RF ibuprofen 800 mg tablet 800 mg PO TID PRN (Reason: pain) Qty: 30 0RF Referrals: Sylwia Curry MD [Primary Care Provider] - In 1 week Problem List Clinical Impression: Phlegm in throat Patient/Caregiver Discharge Instructions Discharge Activity: activity as tolerated Diet Instructions: No restrictions Education Materials: ED Symptoms With Uncertain Cause Additional Instructions: Today you were seen in the emergency department for increased phlegm in your throat and dry mouth. All of your tests here are normal and that is very reassuring. Your vital signs were stable and normal as well. Please return to the emergency department if you have any worsening or any further medical problems and we will help you. Otherwise you should follow-up with your primary care doctor within the next several days. Print Language: Bulgarian Stand Alone Forms: [employer] Award Info., Patient Portal Info Letter MDM Narrative MDM hospital course: This section includes all my notes and documentations, including HPI, PE, and ED course. Tien Jimenez MD ? HPI: 65 year old female with history of hypertension, diabetes, and hyperlipidemia presents to the ED for multiple complaints. Reports for several days she has been producing a lot of phlegm that is clear in color, has a dry mouth, feels feverish, sores to her tongue, and a fullness sensation to the right side of her neck. Additionally reports this morning her blood pressure was high at home and has felt anxious since. Denies any known modifying factors at home. Denies chest pain, cough, shortness of breath, abdominal pain, n/v/d, or urinary symptoms. ? ROS: All negative except as documented in HPI. ? PE: GENERAL APPEARANCE:? alert and oriented x 4, well-developed, well-nourished. patient appears anxious. VITALS: All vitals were reviewed and the pulse ox is % on room air, which is normal according to my interpretation. HEENT: Normocephalic, atraumatic; pupils equal, round, reactive to light; EOMI; mucous membranes pink, moist; oropharynx clear NECK: Supple LUNGS: CTABL; no wheezes, no rales, no rhonchi HEART: Regular rate, regular rhythm; normal S1, S2; no murmurs ABDOMEN: non distended; normal BS;? soft, no tenderness, no guarding, no rebound; no masses, no organomegaly, no hernia?? EXTREMITIES:? atraumatic; no edema NEUROLOGIC: awake; alert and oriented x4; cranial nerves II-XII grossly intact; no focal sensory or motor deficits PSYCHIATRIC:? Patient appears anxious SKIN: warm, dry, normal color; no rashes ? I reviewed all diagnostic test results: My interpretation of the chest x-ray is nml diaphragmatic edge, sharp costophreic angles, nml cardiac silhouette, no infiltrates . My interpretation of the EKG @12:09h sinus tachycardia, rate 107, left axis deviation, no ectopy, no signs of acute ischemia. ? Blood tests and urine test: CBC and CMP are unremarkable, PT/PTT within normal limits, troponin negative, urinalysis negative for infection The patient's chest x-ray was read by the radiologist as showing left lenticular pneumonia. I disagree. Patient denies cough, fevers or chills or shakes. ? At this point, diagnoses include: Phlegm in throat ? Treatment here included: No medications given in the ED. ? Significant improvement noted. ? Recommended outpatient care. ? Based on my best medical judgment, made decision no further evaluation or treatment indicated at this time. Patient understands and agrees to the customized discharge instructions and printed, see below. ? Discharge instructions from Dr. Jimenez: Today you were seen in the emergency department for increased phlegm in your throat and dry mouth. All of your tests here are normal and that is very reassuring. Your vital signs were stable and normal as well. Please return to the emergency department if you have any worsening or any further medical problems and we will help you. Otherwise you should follow-up with your primary care doctor within the next several days. Clinical Information Provided by patient Medical Records Reviewed [facility] Meds/Rx Considered, not Ordered None Labs/Rad/Tests considered, not Ordered None Chronic Illness/Social Conditions which may negatively complicate care or outcome(s)-explain: None or not applicable Lab Interpretation Lab(s) interpretation(s): See [facility] Imaging Radiology reports / interpretation(s): See [facility] Medication Administration(s) None Diagnosis Most likely dx, and/or detailed dx discussion: Phlegm in throat Dispositon Disposition: Discharge Home
[2025-07-10 14:56] VITALS: BP 155/92; PULSE 78; RESP 16; O2SAT 97
== END 2025-07-10 15:04 | disposition home or self-care (01) ==
PROVIDERS: Nurse Practitioner Family; Emergency Provider Emergency Medicine; PCP Obstetrics & Gynecology
DX: J18.9 Pneumonia, unspecified organism (principal); R00.0 Tachycardia, unspecified; I10 Essential (primary) hypertension; E78.00 Pure hypercholesterolemia, unspecified
CPT/HCPCS: 36415; 71046; 80053; 81001; 83735; 83880; 84439; 84443; 84484; 85025; 85610; 85730; 93005; 99283